=== PATIENT | female | born 1950 | race Caucasian/White ===

== ENCOUNTER 2019-01-24 07:15 | Day surgery (SDC) | payer MEDICARE ==
[~2019-01-24] VITALS: Ht 157.5 cm; Wt 77.5 kg
[~2019-01-24 07:15] MED LIST: ASPI325 PO; ASPI81EC PO; ATOR20 PO; ATOR40TA PO; ATORVASTATIN CA20 MG PO; BASAGLAR K100 UNIT/1 SC; CENTRUM SILVER1 EAC3 PO; CEPH500 PO; DICLOFENAC SOD100 G1 TOP; HYDCHL12.5 PO; HYDCHL25 PO; INSULANPEN; INSULANPEN SC; Isosorbide Mono30 MG PO; LOSA50 PO; MAGOXI400 PO; METO100 PO; METO25 PO; Metformin HCl1000 MG PO; NAPR220; NAPR220 PO; Nitroglycerin0.4 MG SL; OXYACE5T PO; Omeprazole20 M1; PRAV20 PO; SPIR25 PO; TAMS.4ER PO; TRULICITY0.75 MG/0. SC; VERA180ERB PO; VITAMIN D35000 UNI1 PO
[2019-01-24] MEDS ORDERED: Aspirin EC325 MG PO (07:48)
--- NOTE | 2019-01-24 08:08 | NUR ---
Ambulatory in Day Surgery History, Chart, Medications and Allergies reviewed before start of procedure. Lungs clear T/O to Auscultation. Patient confirms NPO status and agrees with scheduled surgery. Pre-Op teaching done. Pt verbalizes understanding. Patient States Post-Procedure ride home has been arranged.
--- NOTE | 2019-01-24 12:21 | NUR ---
ASSUMED CARE OF PT FROM [facility] PACU. PT IS A&O. BIOX IN THE MID 80'S ON RA. PT PLACED ON 2L NC AND BIOX REMAINS BETWEEN 88-91% WITH ENCOURAGEMENT OF DEEP BREATHING. PT TAKING SIPS OF APPLE/CRANBERRY JUICE. FAMILY TO BEDSIDE.
--- NOTE | 2019-01-24 12:24 | NUR ---
PT EATING CRACKERS. REPORTS PAINFUL TO TAKE A DEEP BREATH. ENCOURAGED PT TO EAT AND THEN WE WOULD TRY SOME PO PAIN MEDICATIONS. PT AGREEABLE.
--- NOTE | 2019-01-24 12:27 | NUR ---
ICE PACK PROVIDED.
--- NOTE | 2019-01-24 12:55 | NUR ---
PT AMB TO BATHROOM AND BACK. PT BIOX IN THE MID 80'S WHEN RETURN TO BEDSIDE. PT PLACED BACK ON O2 AT 2L NC. BIOX UP TO 89% ONLY. DOES NOT INCREASED WITH ENCOURAGED DEEP BREATHING AND COUGH.
--- NOTE | 2019-01-24 13:08 | NUR ---
DR. TORRES AND DR. SORTO SPOKE TO ABOUT PT CURRENT BIOX AND CONDITION. DOUNEB ORDER AND PT PT START INCENTIVE SPIROMENTER. IF PT CONDITION DOESN'T IMPROVED PLAN TO EXTENDED RECOVERY.
--- NOTE | 2019-01-24 13:17 | NUR ---
BREATHING TREATMENT COMPLETE. PT INSTRUCTED ON INCENTIVE SPIROMENTER. PT DEMONSTRATED. PT GIVEN WARM BLANKET AND RESTING. BIOX UP TO 93% WHILE PT IS AWAKE AND WHEN SHE IS AT REST BIOX AT 90% ON 2L. INCREASED TO 3L NC WILL CONTINUE TO MONTIOR PT. WAITING FOR HSUBAND TO RETURN FROM TAKING HER RX TO GET FILLED AT PHARMACY.
--- NOTE | 2019-01-24 13:53 | NUR ---
REPORT FROM ANTHONY IN DAY SURGERY.
--- NOTE | 2019-01-24 14:00 | NUR ---
REPORT TO JOHANNA Johnson RN TO ASSUME CARE OF PT. PT TRANSFERED TO ROOM 208
--- NOTE | 2019-01-24 14:00 | NUR ---
PT TO 208 VIA HARDIK. PT ALERT AND ORIENTED. PT POST OP UMBILICAL HERNIA REPAIR, HYPOXIC IN RECOVERY. HERE FOR CONTINUED MONITORING. SPOUSE AT BEDSIDE. 20G TO RIGHT HAND. SATS 96% ON 3L, DECREASED O2 TO 2L. PT DENIES NAUSEA, DENIES SOB, DENIES NEED FOR PAIN MEDS.
[2019-01-24] MEDS ORDERED: COQ10 PO (14:14)
--- NOTE | 2019-01-24 14:30 | NUR ---
VSS, DECREASED O2 TO 1L. SNACK PROVIDED TO PT. PT HAS NO COMPLAINTS.
--- NOTE | 2019-01-24 15:53 | NUR ---
PT SAT ON 1L 88%. PT DENIES SOB. INCREASED O2 TO 2L. PT STATES PAIN MANAGED. ATE 100% SNACK.
--- NOTE | 2019-01-24 16:23 | NUR ---
PT UP RR THEN TO AMB IN DUNN.
--- NOTE | 2019-01-24 16:27 | NUR ---
LEFT MESSAGE WITH DR BHATT ANSWERING SERVICE RE NEED FOR ADMIT ORDERS.
--- NOTE | 2019-01-24 16:40 | NUR ---
DR TORRES TO ROOM FOR EVAL. PLAN TO MONITOR A FEW HRS AND DC HOME TONIGHT. PT AMB WELL. DOING IS.
--- NOTE | 2019-01-24 16:55 | NUR ---
REPORT TO TED TARANGO.
--- NOTE | 2019-01-24 17:34 | NUR ---
PT O2 SAT 92% ON RA-PT REQUESTS TO GO HOME, MEETS DISCHARGE CRITERA.
== END 2019-01-24 18:30 | disposition home or self-care (01) ==
LOC: ORSCMMR 07:15 → ORD 09:00 → SURS 14:00 → ORSCMMR 18:30
PROVIDERS: Surgery
PROC: 0WUF0JZ Supplement Abdominal Wall with Synthetic Substitute, Open Approach (ICD-10-PCS; principal; 2019-01-24 09:00)
DX: K43.2 Incisional hernia without obstruction or gangrene (principal); I10 Essential (primary) hypertension; E11.9 Type 2 diabetes mellitus without complications; I25.2 Old myocardial infarction; I25.10 Atherosclerotic heart disease of native coronary artery without angina pectoris; Z87.891 Personal history of nicotine dependence; Z79.899 Other long term (current) drug therapy; Z79.82 Long term (current) use of aspirin
CPT/HCPCS: 82947; 88302; A9270-GY; C1781; J0690; J1100; J1885; J2370; J2405; J2704; J2710; J2765; J3010; J7120

== ENCOUNTER 2019-07-05 10:31 | Emergency (ER) | payer MEDICARE ==
[~2019-07-05] VITALS: Ht 157.5 cm; Wt 74.4 kg
[~2019-07-05 10:31] MED LIST changes: +Aspirin EC325 MG PO; +COQ10 PO
[2019-07-05 12:26] LABS: BASOPHILS ABSOLUTE AUTO 0.07 K/mm3 (0.00-0.23); BASOPHILS PERCENT AUTO 1 % (0-2); EOSINOPHILS ABSOLUTE AUTO 0.22 K/mm3 (0.00-0.68); EOSINOPHILS PERCENT AUTO 2 % (0-6); Hematocrit 43.7 % (33.0-51.0); Hemoglobin 14.2 g/dL (11.5-16.0); IMMATURE GRAN ABSOLUTE AUTO 0.05 K/mm3 (0.00-0.10); IMMATURE GRAN PERCENT AUTO 0 % (0-1); LYMPHOCYTES ABSOLUTE AUTO 2.83 K/mm3 (0.84-5.20); LYMPHOCYTES PERCENT AUTO 23 % (21-46); MONOCYTES ABSOLUTE AUTO 0.79 K/mm3 (0.16-1.47); MONOCYTES PERCENT AUTO 6 % (4-13); Mean Corpuscular HGB 30.7 pg (26.0-34.0); Mean Corpuscular HGB Conc 32.5 g/dL (31.5-36.5); Mean Corpuscular Volume 94 fL (80-100); Mean Platelet Volume 9.5 fL (9.1-12.4); NEUTROPHILS ABSOLUTE AUTO 8.39 K/mm3 (1.96-9.15); NEUTROPHILS PERCENT AUTO 68 % (41-73); Platelet Count 406 K/mm3 (150-400); RDW Coefficient Variation 12.5 % (11.7-14.2); RDW Standard Deviation 43.4 fL (35.1-46.3); Red Blood Cell Count 4.63 M/mm3 (3.80-5.20); White Blood Cell Count 12.35 K/mm3 (4.00-11.30)
[2019-07-05 12:37] LABS: Albumin, Blood 3.8 g/dL (3.4-5.0); Bilirubin, Total 0.3 mg/dL (0.1-1.0); Bun/Creatinine Ratio 13.8 (12.0-20.0); Calcium, Blood 9.5 mg/dL (8.5-10.1); Creatinine, Blood 1.16 mg/dL (0.40-1.00); Globulin, Blood 3.9 g/dL (2.2-4.0); Potassium, Blood 4.2 mmol/L (3.5-5.5); Total Protein, Blood 7.7 g/dL (6.4-8.2)
[2019-07-05 14:17] LABS: Source, Urine Clean Catch
[2019-07-05 14:20] LABS: Bilirubin, Urine Neg (Neg); Blood, Urine 5+ (Neg); Glucose Qualitative, Urine Neg (Neg); Ketones, Urine Neg (Neg); Leukocyte Esterase, Urine 2+ (Neg); Nitrite, Urine Neg (Neg); Protein, Urine 1+ (Neg); Urobilinogen, Urine NORM (Normal)
[2019-07-05 14:25] LABS: Appearance, Urine Hazy (Clear); Color, Urine Yellow (P-Yellow)
[2019-07-05 14:26] LABS: Bacteria Mod /hpf; Calcium Oxalate Crystals Mod /hpf; Mucus Light (0-Heavy); Squamous Epithelial Cells Few /hpf (Few)
[2019-07-05] MEDS ORDERED: Percocet 5-3251 EACH PO (15:09)
[2019-07-05] MEDS ORDERED: IBUP400 PO (15:09)
[2019-07-05] MEDS ORDERED: ONDA4ODT SL (15:09)
== END 2019-07-05 15:23 | disposition home or self-care (01) ==
LOC: ER 10:31
PROVIDERS: Emergency Medicine
DX: R82.71 Bacteriuria (principal); D72.829 Elevated white blood cell count, unspecified; E11.9 Type 2 diabetes mellitus without complications; I25.2 Old myocardial infarction; Z87.442 Personal history of urinary calculi; Z87.891 Personal history of nicotine dependence; Z79.899 Other long term (current) drug therapy; Z79.4 Long term (current) use of insulin; Z79.82 Long term (current) use of aspirin
CPT/HCPCS: 36415; 76770; 80053; 81001; 85025; 87086; 96374; 99284-25; J1885

== ENCOUNTER → 2021-05-24 | Outpatient (CLI) | payer MEDICARE ==
[~2021-05-24] MED LIST changes: +IBUP400 PO; +ONDA4ODT SL; +Percocet 5-3251 EACH PO
== END ==
LOC: LAB SHORT 10:33 → LAB 10:33
DX: L02.511 Cutaneous abscess of right hand (principal)
CPT/HCPCS: 87070; 87075; 87205

== ENCOUNTER → 2021-10-25 | Outpatient (CLI) | payer MEDICARE | END | disposition home or self-care (01) | LOC: LAB SHORT 11:33 → LAB 11:33 | DX: N20.0 Calculus of kidney (principal) | CPT/HCPCS: 87086 ==

== ENCOUNTER → 2022-01-03 | Outpatient (CLI) | payer MEDICARE ==
[2022-01-13 21:10] LABS: BRUSHITE 0.15 ratio (0.00-3.00); CALCIUM OXALATE 4.37 ratio (0.00-6.00); CALCIUM, URINE 10.1 mg/dL (Not Estab.); CALCIUM, URINE 181.8 mg/24 hr (0.0-320.0); CHLORIDE URINE 47 (38-210); CITRIC ACID (CITRATE) 258 mg/L (Not Estab.); CITRIC ACID(CITRATE) 464 mg/24 hr (320-1240); CREATININE, URINE 38.2 mg/dL (Not Estab.); CREATININE, URINE 687.6 mg/24 hr (800.0-1800.0); MAGNESIUM, URINE 1.8 mg/dL (Not Estab.); MONOSODIUM URATE 0.28 ratio (0.00-4.00); OSMOLALITY, URINE 184 (300-900); SODIUM, URINE 27 mmol/L (Not Estab.); SODIUM, URINE 49 (39-258); STRUVITE 0.01 ratio (0.00-1.00); URIC ACID 1.57 ratio (0.00-1.20); URINE VOLUME 1800 mL/24 hr (600-1600); URINE VOLUME (PRESERVATIVE) 1800 mL/24 hr (600-1600)
== END | disposition home or self-care (01) ==
LOC: LAB SHORT 05:00
PROVIDERS: Urology
DX: N20.0 Calculus of kidney (principal)
CPT/HCPCS: 81003; 82131; 82140; 82340; 82436; 82507; 82570; 83735; 83935; 83945; 84105; 84133; 84300; 84392; 84560

== ENCOUNTER → 2023-06-10 | Outpatient (CLI) | payer MEDICARE ==
[2023-06-10 09:42] LABS: Source, Urine Clean Catch
[2023-06-10 09:59] LABS: Bacteria Few /hpf; Red Blood Cells, Urine 25-50 /hpf (0-2); Renal Epithelial Rare /hpf (0-Rare); Squamous Epithelial Cells Mod /hpf (Few)
== END | disposition home or self-care (01) ==
LOC: LAB SHORT 09:40 → LAB 09:40
PROVIDERS: Physician Assistant Medical
DX: R30.0 Dysuria (principal)
CPT/HCPCS: 81015; 87077; 87086; 87186

== ENCOUNTER → 2023-08-08 | Outpatient (CLI) | payer MEDICARE ==
[2023-08-08 09:26] LABS: BASOPHILS ABSOLUTE AUTO 0.05 K/mm3 (0.00-0.23); BASOPHILS PERCENT AUTO 0 % (0-2); EOSINOPHILS ABSOLUTE AUTO 0.03 K/mm3 (0.00-0.68); EOSINOPHILS PERCENT AUTO 0 % (0-6); Hemoglobin 13.4 g/dL (11.5-16.0); IMMATURE GRAN ABSOLUTE AUTO 0.05 K/mm3 (0.00-0.10); IMMATURE GRAN PERCENT AUTO 0 % (0-1); LYMPHOCYTES ABSOLUTE AUTO 1.18 K/mm3 (0.84-5.20); LYMPHOCYTES PERCENT AUTO 10 % (21-46); MONOCYTES ABSOLUTE AUTO 0.41 K/mm3 (0.16-1.47); MONOCYTES PERCENT AUTO 3 % (4-13); Mean Corpuscular HGB 31.8 pg (26.0-34.0); Mean Corpuscular HGB Conc 33.5 g/dL (31.5-36.5); Mean Corpuscular Volume 95 fL (80-100); Mean Platelet Volume 8.9 fL (9.1-12.4); NEUTROPHILS ABSOLUTE AUTO 10.57 K/mm3 (1.96-9.15); NEUTROPHILS PERCENT AUTO 86 % (41-73); Platelet Count 308 K/mm3 (150-400); RDW Coefficient Variation 12.5 % (11.7-14.2); RDW Standard Deviation 43.7 fL (35.1-46.3); Red Blood Cell Count 4.22 M/mm3 (3.80-5.20); White Blood Cell Count 12.29 K/mm3 (4.00-11.30)
[2023-08-08 09:35] LABS: Albumin, Blood 3.5 g/dL (3.4-5.0); Albumin/Globulin Ratio 1.1 (0.8-1.8); Bilirubin, Total 0.4 mg/dL (0.1-1.0); Bun/Creatinine Ratio 14.3 (12.0-20.0); Calcium, Blood 9.3 mg/dL (8.5-10.1); Creatinine, Blood 1.19 mg/dL (0.40-1.00); Globulin, Blood 3.1 g/dL (2.2-4.0); Potassium, Blood 4.4 mmol/L (3.5-5.5); Total Protein, Blood 6.6 g/dL (6.4-8.2)
== END | disposition home or self-care (01) ==
LOC: LAB SHORT 09:18 → LAB 09:18
PROVIDERS: Chiropractor
DX: D72.829 Elevated white blood cell count, unspecified (principal); R10.9 Unspecified abdominal pain
CPT/HCPCS: 80053; 85025; 87077; 87086; 87186

== ENCOUNTER → 2024-01-03 | Outpatient (CLI) | payer MEDICARE ==
[2024-01-03 12:51] LABS: Creatinine Urine 54.2 mg/dL (27.00-270.00)
[2024-01-03 13:18] LABS: Calcium, Urine 14.2 mg/dL (< 17.5); Calcium, Urine Calculation 255.6 mg/24hrs (42.0-353.0)
== END | disposition home or self-care (01) ==
LOC: LAB SHORT 07:30 → LAB 07:30
PROVIDERS: Internal Medicine Endocrinology, Diabetes & Metabolism
DX: Z09 Encounter for follow-up examination after completed treatment for conditions other than malignant neoplasm (principal); Z87.442 Personal history of urinary calculi
CPT/HCPCS: 81050; 82340; 82570

== ENCOUNTER → 2024-04-03 | Outpatient (CLI) | payer MEDICARE | END | disposition home or self-care (01) | LOC: LAB 17:44 → LAB SHORT 17:44 | DX: L03.116 Cellulitis of left lower limb (principal) | CPT/HCPCS: 87070; 87075; 87205 ==

== ENCOUNTER 2024-04-13 15:41 | Inpatient (IN) | payer MEDICARE ==
[~2024-04-13] VITALS: Ht 157.5 cm; Wt 73.9 kg
[~2024-04-13 15:41] MED LIST changes: -Aspir 8181 MG PO; -CALCIUM CIT 311 EAC7 PO; -CO Q10100 MG PO; -METF500C PO; -METO100ER PO; -OXYB5ER PO; -Prednisone10 MG PO; -TRULICITY4.5 MG/0.5 SC
[2024-04-13] MEDS ORDERED: CALCIUM CIT 311 EAC7 PO (15:56)
[2024-04-13] MEDS ORDERED: ATOR20 PO (15:56)
[2024-04-13] MEDS ORDERED: METF500C PO (15:57)
[2024-04-13] MEDS ORDERED: METO100ER PO (15:57)
[2024-04-13] MEDS ORDERED: Aspir 8181 MG PO (15:57)
[2024-04-13] MEDS ORDERED: OXYB5ER PO (15:58)
[2024-04-13] MEDS ORDERED: TRULICITY4.5 MG/0.5 SC (15:58)
[2024-04-13] MEDS ORDERED: Lactated Ringer's 1,000 ML IV ONE ×2 (16:20→16:21)
[2024-04-13 16:31] LABS: BASOPHILS ABSOLUTE AUTO 0.01 K/mm3 (0.00-0.23); BASOPHILS PERCENT AUTO 0 % (0-2); EOSINOPHILS ABSOLUTE AUTO 0.02 K/mm3 (0.00-0.68); EOSINOPHILS PERCENT AUTO 0 % (0-6); Hematocrit 38.7 % (33.0-51.0); Hemoglobin 13.1 g/dL (11.5-16.0); IMMATURE GRAN ABSOLUTE AUTO 0.03 K/mm3 (0.00-0.10); IMMATURE GRAN PERCENT AUTO 1 % (0-1); LYMPHOCYTES ABSOLUTE AUTO 1.53 K/mm3 (0.84-5.20); LYMPHOCYTES PERCENT AUTO 24 % (21-46); MONOCYTES ABSOLUTE AUTO 0.45 K/mm3 (0.16-1.47); MONOCYTES PERCENT AUTO 7 % (4-13); Mean Corpuscular HGB 31.2 pg (26.0-34.0); Mean Corpuscular HGB Conc 33.9 g/dL (31.5-36.5); Mean Corpuscular Volume 92 fL (80-100); Mean Platelet Volume 9.6 fL (9.1-12.4); NEUTROPHILS ABSOLUTE AUTO 4.46 K/mm3 (1.96-9.15); NEUTROPHILS PERCENT AUTO 69 % (41-73); Platelet Count 211 K/mm3 (150-400); RDW Standard Deviation 43.6 fL (35.1-46.3)
[2024-04-13 16:49] LABS: Albumin, Blood 3.1 g/dL (3.4-5.0); Albumin/Globulin Ratio 0.8 (0.8-1.8); Bilirubin, Total 0.4 mg/dL (0.1-1.0); Bun/Creatinine Ratio 16.3 (12.0-20.0); Calcium, Blood 8.5 mg/dL (8.5-10.1); Creatinine, Blood 0.98 mg/dL (0.40-1.00); Globulin, Blood 3.9 g/dL (2.2-4.0); Potassium, Blood 3.5 mmol/L (3.5-5.5)
[2024-04-13] MEDS ORDERED: Ondansetron HCl 2 MG / ML 2ML Vial IV PRN (18:50)
[2024-04-13] MEDS ORDERED: Remdesivir (EUA) 200 MG in NS 250 ML IV ONE (18:50)
[2024-04-13] MEDS ORDERED: Acetaminophen 500 MG Tab PO PRN (18:50)
[2024-04-13] MEDS ORDERED: NS 1,000 ML IV SCH (19:00)
[2024-04-13] MEDS ORDERED: Dexamethasone 2 MG Tab PO SCH (19:00)
[2024-04-13] MEDS ORDERED: Metoprolol Tartrate 25 MG Tab PO SCH (19:00)
[2024-04-13] MEDS ORDERED: Insulin Glargine-Yfgn 100 Unit/mL 3 ML SYR SC SCH (21:00)
[2024-04-13] MEDS ORDERED: Insulin Human Lispro 100 Units/ML 3ML Syringe SC SCH (21:00)
[2024-04-13 21:05] VITALS: BP 130/57
--- NOTE | 2024-04-13 23:38 | NUR ---
PATIENT IS A NEW ADMIT FROM THE ED. AXOX 4 AND SELF TRANSFER FROM [facility] TO BED. DENIES CHEST PAIN AND N/V. ON 6L O2 NC HUMIDIFIED AND RA BASELINE. CBG CHECKED 202. NS STARTED @ 75 mL/HR. QUATER SIZE SCAB TO LEFT CALF FROM STACKING WOOD IN PICKUP A FEW WEEKS AGO. ORIENTED TO ROOM AND CALL LIGHT SYSTEM. WANTED TO SLEEP AFTER ASSESSMENT. WCTM.
--- NOTE | 2024-04-14 04:22 | NUR ---
SHIFT SUMMARY PATIENT HAD NO ACUTE CHANGES. AXOX 4 AND INDEPENDENT IN ROOM. DENIES CHEST PAIN AND N/V. ON 6L O2 NC HUMIDIFIED. NS INFUSING @ 75 mL/HR. CBG 202. VSS/AFEBRILE. COOPERATIVE WITH CARE. REPORTS LIVES IN GLIDE WITH SPOUSE. CALL LIGHT IN REACH. BED IN LOWEST POSITION. WILL CONTINUE TO MONITOR UNTIL DAY SHIFT NURSE ASSUMES CARE.
[2024-04-14 05:06] VITALS: BP 107/57
[2024-04-14 05:17] LABS: BASOPHILS PERCENT AUTO 0 % (0-2); EOSINOPHILS PERCENT AUTO 0 % (0-6); Hematocrit 35.2 % (33.0-51.0); Hemoglobin 11.9 g/dL (11.5-16.0); IMMATURE GRAN ABSOLUTE AUTO 0.01 K/mm3 (0.00-0.10); IMMATURE GRAN PERCENT AUTO 0 % (0-1); LYMPHOCYTES ABSOLUTE AUTO 0.87 K/mm3 (0.84-5.20); LYMPHOCYTES PERCENT AUTO 26 % (21-46); MONOCYTES ABSOLUTE AUTO 0.09 K/mm3 (0.16-1.47); MONOCYTES PERCENT AUTO 3 % (4-13); Mean Corpuscular HGB 31.2 pg (26.0-34.0); Mean Corpuscular HGB Conc 33.8 g/dL (31.5-36.5); Mean Corpuscular Volume 92 fL (80-100); Mean Platelet Volume 9.9 fL (9.1-12.4); NEUTROPHILS ABSOLUTE AUTO 2.43 K/mm3 (1.96-9.15); NEUTROPHILS PERCENT AUTO 72 % (41-73); Platelet Count 200 K/mm3 (150-400); RDW Coefficient Variation 12.7 % (11.7-14.2); RDW Standard Deviation 42.7 fL (35.1-46.3); Red Blood Cell Count 3.82 M/mm3 (3.80-5.20)
[2024-04-14 05:48] LABS: Calcium, Blood 7.9 mg/dL (8.5-10.1); Creatinine, Blood 0.8 mg/dL (0.40-1.00); Magnesium, Blood 2.2 mg/dL (1.6-2.4); Potassium, Blood 4.1 mmol/L (3.5-5.5)
[2024-04-14 07:26] VITALS: BP 123/66
[2024-04-14] MEDS ORDERED: Atorvastatin 10 MG Tab PO SCH (09:00)
[2024-04-14] MEDS ORDERED: Enoxaparin 40 MG/0.4 ML SYR SC SCH (09:00)
[2024-04-14] MEDS ORDERED: Aspirin 81 MG TabEC PO SCH (09:00)
[2024-04-14] MEDS ORDERED: Isosorbide Mononitrate 30 MG TABCR PO SCH (11:45)
[2024-04-14] MEDS ORDERED: Remdesivir (EUA) 100 MG in NS 250 ML IV SCH (12:00)
--- NOTE | 2024-04-14 13:23 | NUR ---
PER PT LIST FROM HOME, AND MED REC. MISSING MEDS REQUESTED TO BE ADDED.' CALLED DR HARTMAN. OKAY ADD LOSSARTAN 25 MG PO DAILY, METFORMIN ER 500 MG PO DAILY, OXYBUTYNIN ER 10 MG PO DAILY BEDTIME. KEEP METOPROLOL AT LOWER DOSE NO CHANGE. DONE
[2024-04-14 15:41] VITALS: BP 111/61
[2024-04-14] MEDS ORDERED: Insulin Human Lispro 100 Units/ML 3ML Syringe SC SCH (16:30)
--- NOTE | 2024-04-14 18:00 | NUR ---
PT QUITE PLEASANT TODAY. NO C.O PAIN TODAY. O2 STARTED AT 7L THIS AM. GRADUALLY ABLE TO TAPER DOWN TO 2L AT THIS PRESENT TIME. SATTING >92% -94% ON BIOX MONITOR. PT AWARE AND AGREEABLE TO CALL IF CONT BIOX NOTIFIES OF LOW O2. PT STATES FEELS SOME IMPROVEMENT TODAY AND FEELS MIGHT BE OKAY TO GO HOME TOMORROW. NO OTHER CONCERNS NOTED. BED IN LOW POSITION, CALL LITE IN REACH, CALLS APROP
[2024-04-14 19:31] VITALS: BP 99/44
[2024-04-14] MEDS ORDERED: oxyBUTYnin chloride 5 MG TAB PO SCH (21:00)
[2024-04-15 04:01] VITALS: BP 101/53
--- NOTE | 2024-04-15 04:11 | NUR ---
SHIFT SUMMARY PATIENT HAD NO ACUTE CHANGES. AXOX 4 AND INDEPENDENT IN ROOM. ON 2L O2 NC STATING 88%-92%. COVID-19+. VSS/AFEBRILE. DENIES CHEST PAIN AND N/V. PIV INTACT. COOPERATIVE WITH CARE. CALL LIGHT IN REACH. BED IN LOWEST POSITION. WILL CONTINUE TO MONITOR UNTIL DAY SHIFT NURSE ASSUMES CARE.
[2024-04-15 07:45] VITALS: BP 103/52
[2024-04-15] MEDS ORDERED: Losartan Potassium 25 MG Tab PO SCH (09:00)
[2024-04-15] MEDS ORDERED: MetFORMIN HCl 500 mg PO SCH (09:00)
[2024-04-15] MEDS ORDERED: CO Q10100 MG PO (12:50)
[2024-04-15] MEDS ORDERED: Prednisone10 MG PO (12:54)
--- NOTE | 2024-04-15 16:02 | NUR ---
DISCHARGE: PT D/C @1605 VIA WHEELCHAIR WITH BROTHER. MEDICATIONS FAXED TO [facility] TW[facility] PT DID NOT RECEIVE TEXT THAT MEDS WERE READY AND COULD NOT GET A HOLD OF PHARMACY. NO QUESTIONS AT TIME OF D/C. PT HAS FOLLOW-UP APPOINTMENT WITH DR. SANDOVAL. INFORMATION SENT WITH PT.
== END 2024-04-15 16:04 | disposition home or self-care (01) | DRG 177 ==
LOC: ER 15:41 → ERHOLD 18:13 → MEDS 18:13
PROVIDERS: Emergency Medicine; Nurse Practitioner Acute Care; ADMIT Hospitalist
PROC: XW033E5 Introduction of Remdesivir Anti-infective into Peripheral Vein, Percutaneous Approach, New Technology Group 5 (ICD-10-PCS; principal; 2024-04-13)
PROC: 3E0DX3Z Introduction of Anti-inflammatory into Mouth and Pharynx, External Approach (ICD-10-PCS; 2024-04-13)
DX: U07.1 COVID-19 (principal); J96.01 Acute respiratory failure with hypoxia; I25.10 Atherosclerotic heart disease of native coronary artery without angina pectoris; E78.5 Hyperlipidemia, unspecified; E11.51 Type 2 diabetes mellitus with diabetic peripheral angiopathy without gangrene; E11.65 Type 2 diabetes mellitus with hyperglycemia; Z79.4 Long term (current) use of insulin
CPT/HCPCS: 36415; 80048; 80053; 82947; 83735; 85025; 94761; 94762; 96361; 96365; 99285-25; A9270; J0248; J1650; J1815; J7030; J7050; J7120

== ENCOUNTER → 2024-04-13 | Outpatient (CLI) | payer MEDICARE ==
[~2024-04-13] MED LIST changes: +Aspir 8181 MG PO; +CALCIUM CIT 311 EAC7 PO; +CO Q10100 MG PO; +METF500C PO; +METO100ER PO; +OXYB5ER PO; +Prednisone10 MG PO; +TRULICITY4.5 MG/0.5 SC
== END | disposition home or self-care (01) ==
LOC: LAB SHORT 15:40 → LAB 15:40
DX: R30.9 Painful micturition, unspecified (principal); Z87.440 Personal history of urinary (tract) infections
CPT/HCPCS: 87086

== ENCOUNTER → 2024-11-21 | Outpatient (CLI) | payer MEDICARE ==
[~2024-11-21] MED LIST changes: +Aspir 8181 MG PO; +CALCIUM CIT 311 EAC7 PO; +CO Q10100 MG PO; +METF500C PO; +METO100ER PO; +OXYB5ER PO; +Prednisone10 MG PO; +TRULICITY4.5 MG/0.5 SC
== END | disposition home or self-care (01) ==
LOC: LAB 10:25 → LAB SHORT 10:25
DX: N39.0 Urinary tract infection, site not specified (principal)
CPT/HCPCS: 87077; 87086; 87186

== ENCOUNTER → 2025-04-04 | Outpatient (CLI) | payer MEDICARE ==
[2025-04-04 12:39] LABS: Hematocrit 33.1 % (33.0-51.0); Hemoglobin 11.2 g/dL (11.5-16.0); Mean Corpuscular HGB Conc 33.8 g/dL (31.5-36.5); Mean Corpuscular Volume 98 fL (80-100); NRBC ABSOLUTE 0.00 K/mm3 (0.00-0.02); NRBC Auto 0.0 /100 WBC (0.0-0.2); Platelet Count 234 K/mm3 (150-400); RDW Coefficient Variation 15.2 % (11.7-14.2); RDW Standard Deviation 53.3 fL (35.1-46.3)
[2025-04-04 12:49] LABS: Alanine Aminotransfer (ALT/SGP 24.0 U/L (12-78); Albumin, Blood 3.1 g/dL (3.4-5.0); Albumin/Globulin Ratio 0.8 (0.8-1.8); Anion Gap 14.0 mmol/L (3-11); Aspartate Aminotrans (AST/SGOT 17.0 U/L (12-37); Bilirubin, Total 0.4 mg/dL (0.1-1.0); Blood Urea Nitrogen 29.0 mg/dL (8-24); CO2, Blood 24.0 mmol/L (21-32); Calcium, Blood 9.0 mg/dL (8.5-10.1); Chloride, Blood 104.0 mmol/L (98-108); Creatinine, Blood 1.45 mg/dL (0.40-1.00); Globulin, Blood 4.1 g/dL (2.2-4.0); Glucose, Blood 156.0 mg/dL (70-99); Potassium, Blood 3.6 mmol/L (3.5-5.5); Sodium, Blood 138.0 mmol/L (136-145); Total Protein, Blood 7.2 g/dL (6.4-8.2)
[2025-04-04 12:58] LABS: BAND PERCENT MAN 6 % (0-8); BASOPHILS ABSOLUTE MAN 0.09 K/mm3 (0.00-0.23); BASOPHILS PERCENT MAN 1 % (0-2); EOSINOPHILS ABSOLUTE MAN 0.18 K/mm3 (0.00-0.68); EOSINOPHILS PERCENT MAN 2 % (0-6); LYMPHOCYTES ABSOLUTE MAN 2.99 K/mm3 (0.84-5.20); LYMPHOCYTES PERCENT MAN 32 % (21-46); MONOCYTES ABSOLUTE MAN 3.55 K/mm3 (0.16-1.47); MONOCYTES PERCENT MAN 38 % (4-13); NEUTROPHILS ABSOLUTE MAN 2.52 K/mm3 (1.96-9.15); SEG NEUTROPHILS PERCENT MAN 21 % (41-73)
== END | disposition home or self-care (01) ==
LOC: LAB SHORT 12:31 → LAB 12:31
PROVIDERS: Physician Assistant
DX: R07.9 Chest pain, unspecified (principal); R06.00 Dyspnea, unspecified
CPT/HCPCS: 80053; 84484; 85025; 85379

== ENCOUNTER 2025-05-22 18:50 | Inpatient (IN) | payer MEDICARE ==
[~2025-05-22] VITALS: Ht 157.5 cm; Wt 84.1 kg
[~2025-05-22 18:50] MED LIST changes: -PANT40 PO
[2025-05-22] MEDS ORDERED: NS 1,000 ML IV SCH (19:00)
[2025-05-22] MEDS ORDERED: CefTRIAXone Sodium 2,000 MG in NS 100 ML IV ONE (19:00)
[2025-05-22 19:04] LABS: Mean Corpuscular HGB Conc 33.1 g/dL (31.5-36.5); Mean Corpuscular Volume 104 fL (80-100); NRBC ABSOLUTE 0.06 K/mm3 (0.00-0.02); NRBC Auto 0.2 /100 WBC (0.0-0.2); Platelet Count 248 K/mm3 (150-400); RDW Coefficient Variation 17.3 % (11.7-14.2); RDW Standard Deviation 62.4 fL (35.1-46.3)
[2025-05-22] MEDS ORDERED: Pantoprazole Sodium 40 MG Injection IV ONE (19:05)
[2025-05-22 19:10] LABS: Hematocrit 16.6 % (33.0-51.0); Hemoglobin 5.5 g/dL (11.5-16.0)
[2025-05-22 19:18] LABS: Alanine Aminotransfer (ALT/SGP 15.0 U/L (12-78); Albumin, Blood 2.7 g/dL (3.4-5.0); Albumin/Globulin Ratio 0.9 (0.8-1.8); Anion Gap 8.0 mmol/L (3-11); Aspartate Aminotrans (AST/SGOT 13.0 U/L (12-37); Bilirubin, Direct 0.1 mg/dL (0.0-0.3); Bilirubin, Indirect 0.4 mg/dL (0.1-0.7); Bilirubin, Total 0.5 mg/dL (0.1-1.0); Blood Urea Nitrogen 12.0 mg/dL (8-24); CO2, Blood 23.0 mmol/L (21-32); Calcium, Blood 7.8 mg/dL (8.5-10.1); Chloride, Blood 113.0 mmol/L (98-108); Creatinine, Blood 1.41 mg/dL (0.40-1.00); Globulin, Blood 3.0 g/dL (2.2-4.0); Glucose, Blood 74.0 mg/dL (70-99); Magnesium, Blood 2.3 mg/dL (1.6-2.4); Phosphorus, Blood 5.8 mg/dL (2.5-4.9); Potassium, Blood 3.2 mmol/L (3.5-5.5); Prothrombin Time Results 12.4 Sec (9.7-11.5); Sodium, Blood 141.0 mmol/L (136-145); Total Protein, Blood 5.7 g/dL (6.4-8.2)
[2025-05-22 19:49] LABS: BASOPHILS ABSOLUTE MAN 0.00 K/mm3 (0.00-0.23); BASOPHILS PERCENT MAN 0 % (0-2); EOSINOPHILS ABSOLUTE MAN 0.24 K/mm3 (0.00-0.68); EOSINOPHILS PERCENT MAN 1 % (0-6); LYMPHOCYTES % ATYPICAL MANUAL 1 % (0-0); LYMPHOCYTES ABSOLUTE MAN 11.07 K/mm3 (0.84-5.20); LYMPHOCYTES PERCENT MAN 44 % (21-46); MONOCYTES ABSOLUTE MAN 11.07 K/mm3 (0.16-1.47); MONOCYTES PERCENT MAN 45 % (4-13); NEUTROPHILS ABSOLUTE MAN 1.72 K/mm3 (1.96-9.15); SEG NEUTROPHILS PERCENT MAN 7 % (41-73)
[2025-05-22 19:54] LABS: BLASTS PERCENT MAN 2 % (0-0)
[2025-05-22 20:15] LABS: Source, Urine Clean Catch
[2025-05-22 20:19] LABS: Bilirubin, Urine Neg (Neg); Glucose Qualitative, Urine Neg (Neg); Ketones, Urine Neg (Neg); Leukocyte Esterase, Urine Neg (Neg); Protein, Urine 1+ (Neg); Specific Gravity, Urine 1.005 (1.003-1.022); Urobilinogen, Urine NORM (Normal)
[2025-05-22 20:32] LABS: Color, Urine Pale Yellow (P-Yellow)
[2025-05-22] MEDS ORDERED: NS 1,000 ML IV ONE (21:25)
[2025-05-22] MEDS ORDERED: Ondansetron HCl 2 MG / ML 2ML Vial IV PRN (23:25)
[2025-05-22 23:44] LABS: C-REACTIVE PROTEIN, EXT RANGE 3.62 mg/dL (0.000-0.300)
[2025-05-22 23:48] LABS: Ferritin, Serum 751.0 ng/mL (8-252); Total Iron Binding Capacity 196.0 ug/dL (250-450)
[2025-05-23] VITALS (9 sets, daily range): BP systolic 110–133; BP diastolic 53–84
[2025-05-23] MEDS ORDERED: NS 1,000 ML IV SCH
[2025-05-23 00:01] LABS: CORONAVIRUS COVID-19 AG Negative (NEGATIVE)
[2025-05-23 00:08] LABS: IMMATURE RETIC FRACTION 33.7 % (2.3-16.0); RETIC HGB EQUIVALENT 40.0 pg (28.20-36.60); RETICULOCYTE ABSOLUTE 0.0238 M/mm3 (0.0200-0.1100); RETICULOCYTE COUNT PERCENT 1.49 % (0.50-2.50)
--- NOTE | 2025-05-23 03:41 | NUR ---
ADMIT NOTE PT ARRIVED TO PCU FROM ED VIA ED STRETCHER AT APPROX 0215. PT WAS SLID BY 4 STAFF FROM ED STRETCHER TO PCU BED. PT A&OX4. SP02>90%ON RA. TELEMETRY SHOWS NSR, HR 80'S. DENIES PAIN. PURWIK TO SUCTION. LAST BM YESTERDAY. C/O OF NO APPETITE FOR A WEEK. C/O OF DRY MOUTH, SIDE EFFECT OF UROLOGY MEDICATION. POTASSIUM INFUSING PER EMAR. 2UNITS PRBC GIVEN IN ER. PT ORIENTED TO ROOM, CALL LIGHT. CALL LIGHT IN REACH.
[2025-05-23 04:08] LABS: Hematocrit 28.0 % (33.0-51.0); Hemoglobin 9.4 g/dL (11.5-16.0); Mean Corpuscular HGB Conc 33.6 g/dL (31.5-36.5); NRBC ABSOLUTE 0.05 K/mm3 (0.00-0.02); NRBC Auto 0.2 /100 WBC (0.0-0.2); Platelet Count 263 K/mm3 (150-400); RDW Coefficient Variation 18.5 % (11.7-14.2); RDW Standard Deviation 60.6 fL (35.1-46.3)
[2025-05-23 04:09] LABS: Mean Corpuscular Volume 98 fL (80-100)
[2025-05-23 04:28] LABS: Prothrombin Time Results 12.3 Sec (9.7-11.5)
[2025-05-23 04:36] LABS: Alanine Aminotransfer (ALT/SGP 23.0 U/L (12-78); Albumin, Blood 2.8 g/dL (3.4-5.0); Albumin/Globulin Ratio 0.8 (0.8-1.8); Anion Gap 9.0 mmol/L (3-11); Aspartate Aminotrans (AST/SGOT 22.0 U/L (12-37); Bilirubin, Total 0.8 mg/dL (0.1-1.0); Blood Urea Nitrogen 11.0 mg/dL (8-24); CO2, Blood 23.0 mmol/L (21-32); Calcium, Blood 7.7 mg/dL (8.5-10.1); Chloride, Blood 116.0 mmol/L (98-108); Creatinine, Blood 1.27 mg/dL (0.40-1.00); Globulin, Blood 3.6 g/dL (2.2-4.0); Glucose, Blood 78.0 mg/dL (70-99); Magnesium, Blood 2.3 mg/dL (1.6-2.4); Potassium, Blood 3.6 mmol/L (3.5-5.5); Sodium, Blood 144.0 mmol/L (136-145); Total Protein, Blood 6.4 g/dL (6.4-8.2)
--- NOTE | 2025-05-23 05:21 | NUR ---
SHIFT SUMMARY NO CHANGES SINCE PREVIOUS NOTE. PT RESTING IN BED, CALL LIGHT IN REACH.
--- NOTE | 2025-05-23 06:04 | NUR ---
UPDATE UPDATED PT'S SON, WHO CALLED FOR UPDATE. SON TO VISIT THIS AM.
[2025-05-23 06:50] LABS: BASOPHILS ABSOLUTE MAN 0.00 K/mm3 (0.00-0.23); BASOPHILS PERCENT MAN 0 % (0-2); EOSINOPHILS ABSOLUTE MAN 0.00 K/mm3 (0.00-0.68); EOSINOPHILS PERCENT MAN 0 % (0-6); LYMPHOCYTES ABSOLUTE MAN 6.36 K/mm3 (0.84-5.20); LYMPHOCYTES PERCENT MAN 29 % (21-46); MONOCYTES ABSOLUTE MAN 13.61 K/mm3 (0.16-1.47); MONOCYTES PERCENT MAN 62 % (4-13); NEUTROPHILS ABSOLUTE MAN 1.09 K/mm3 (1.96-9.15); SEG NEUTROPHILS PERCENT MAN 5 % (41-73)
[2025-05-23 06:51] LABS: BLASTS PERCENT MAN 4 % (0-0)
[2025-05-23] MEDS ORDERED: CefTRIAXone Sodium 2,000 MG in NS 100 ML IV SCH (09:00)
[2025-05-23] MEDS ORDERED: Enoxaparin 40 MG/0.4 ML SYR SC SCH (09:00)
[2025-05-23] MEDS ORDERED: Lactobacil 2-S.Thermo-Bifido 1 1 Cap PO SCH (09:00)
[2025-05-23 11:25] LABS: Hematocrit 27.0 % (33.0-51.0); Hemoglobin 9.1 g/dL (11.5-16.0); Mean Corpuscular HGB Conc 33.7 g/dL (31.5-36.5); Mean Corpuscular Volume 99 fL (80-100); NRBC ABSOLUTE 0.05 K/mm3 (0.00-0.02); NRBC Auto 0.2 /100 WBC (0.0-0.2); Platelet Count 240 K/mm3 (150-400); RDW Coefficient Variation 19.8 % (11.7-14.2); RDW Standard Deviation 65.0 fL (35.1-46.3)
[2025-05-23] MEDS ORDERED: PANT40 PO (13:07)
[2025-05-23 15:12] LABS: Hematocrit 24.6 % (33.0-51.0); Hemoglobin 8.3 g/dL (11.5-16.0)
[2025-05-23] MEDS ORDERED: Insulin Regular 100 UNIT/ML 10ML Vial SC SCH (16:30)
--- NOTE | 2025-05-23 17:56 | NUR ---
1744-CALL TO MD AGUIAR PATIENT C/O CHEST PAIN AND SOB, STATED THE PAIN WAS SHARP AND WORSE WITH INSPIRATION. PATIENT DENIED CHEST PRESSURE. RESP 22 HR 109BPM AT TIME OF COMPLAINT. PLACED CALL TO MD AGUIAR, GAVE VERBAL FOR THIS RN TO PLACE EKG ORDER, AND STATED SHE WOULD PLACE CT-PE AND TROPONIN ORDERS. STATED SHELL BE BY TO READ EKG.
--- NOTE | 2025-05-23 18:34 | NUR ---
SHIFT SUMMARY PATIENT IS A&O X4, BEEN SLEEPING THROUGH MOST OF DAY. USING A PUREWICK. NURSE STAND BY FOR TRANSFERS, SHE IS WEAK. DEVELOPED SHARP CHEST PAIN WITH SOB DURING SHIFT. AWAITING CT-PE AND RESULTS OF TROPONIN. ECG WAS DONE, SHOWING SINUS TACHYCARDIA. MD SURGEON GAVE VERBAL PT TO STAY ON CLEAR LIQUID DIET WITH CRACKERS UPON REQUEST.
[2025-05-23 22:03] LABS: Hematocrit 23.8 % (33.0-51.0); Hemoglobin 8.1 g/dL (11.5-16.0)
[2025-05-24] VITALS (20 sets, daily range): BP systolic 94–135; BP diastolic 41–82
[2025-05-24 04:19] LABS: Hematocrit 23.5 % (33.0-51.0); Hemoglobin 7.9 g/dL (11.5-16.0); Mean Corpuscular HGB Conc 33.6 g/dL (31.5-36.5); Mean Corpuscular Volume 98 fL (80-100); NRBC ABSOLUTE 0.08 K/mm3 (0.00-0.02); NRBC Auto 0.2 /100 WBC (0.0-0.2); Platelet Count 217 K/mm3 (150-400); RDW Coefficient Variation 19.3 % (11.7-14.2); RDW Standard Deviation 63.2 fL (35.1-46.3)
--- NOTE | 2025-05-24 04:35 | NUR ---
PHYSICIAN COMMUNICATION CONTACTED PROFESSIONAL BASS FISHER RESIDENT TO NOTIFY HER THAT THE PATIENT CURRENTLY HAS AN ORAL TEMP OF 102.6 WITH NO TYLENOL AVAILABLE TO TREAT WITH. TYLENOL PO 650 MG Q6 ORDERED.
[2025-05-24 04:38] LABS: Anion Gap 11.0 mmol/L (3-11); Blood Urea Nitrogen 9.0 mg/dL (8-24); CO2, Blood 19.0 mmol/L (21-32); Calcium, Blood 6.6 mg/dL (8.5-10.1); Chloride, Blood 114.0 mmol/L (98-108); Creatinine, Blood 1.18 mg/dL (0.40-1.00); Glucose, Blood 201.0 mg/dL (70-99); Magnesium, Blood 1.9 mg/dL (1.6-2.4); Potassium, Blood 3.7 mmol/L (3.5-5.5); Sodium, Blood 140.0 mmol/L (136-145)
[2025-05-24 05:23] LABS: BASOPHILS ABSOLUTE MAN 0.00 K/mm3 (0.00-0.23); BASOPHILS PERCENT MAN 0 % (0-2); BLASTS PERCENT MAN 5 % (0-0); EOSINOPHILS ABSOLUTE MAN 0.37 K/mm3 (0.00-0.68); EOSINOPHILS PERCENT MAN 1 % (0-6); LYMPHOCYTES ABSOLUTE MAN 8.95 K/mm3 (0.84-5.20); LYMPHOCYTES PERCENT MAN 24 % (21-46); MONOCYTES ABSOLUTE MAN 26.11 K/mm3 (0.16-1.47); MONOCYTES PERCENT MAN 70 % (4-13)
[2025-05-24 05:42] LABS: NEUTROPHILS ABSOLUTE MAN 0.00 K/mm3 (1.96-9.15); SEG NEUTROPHILS PERCENT MAN 0 % (41-73)
--- NOTE | 2025-05-24 06:23 | NUR ---
SHIFT SUMMARY PATIENT ALERT AND ORIENTED X4. WAS MEDICATED FOR FEVER WHICH IS RESOLVING. REPORTED ONE EPISODE OF CHEST PAIN WHEN TRANSFERRING TO [facility] BUT IT QUICKLY RESOLVED. AFTER PATIENT FELL ASLEEP SHE DESATED TO THE MID 80'S, WAS PLACED ON 2 LITERS O2 VIA NC, CURRENTLY SATING AROUND 94%. VITAL SIGNS STABLE. WILL CONTINUE TO MONITOR. CALL LIGHT WITHIN REACH.
[2025-05-24] MEDS ORDERED: Potassium Chloride 10 Meq Tablet SA PO ONE (08:55)
[2025-05-24] MEDS ORDERED: Isosorbide Mononitrate 30 MG TABCR PO SCH (09:00)
[2025-05-24] MEDS ORDERED: Calcium Citrate 315 MG/Vitamin D 250 IU Tab PO SCH (09:00)
[2025-05-24] MEDS ORDERED: MetFORMIN HCl 500 mg PO SCH (09:00)
[2025-05-24] MEDS ORDERED: Cholecalciferol 1000 Unit Tablet (=25MCG) PO SCH (09:00)
--- NOTE | 2025-05-24 09:30 | NUR ---
AM NOTE: PATIENT ALERT AND ORIENTED X4. FEELING TIRED AND WEAK. DENIES PAINS. UP WITH ONE PERSON ASSIST TO BSC/RECLINER. ON 2L NASAL CANNULA SATING ABOVE 95%. TITRATED TO ROOM AIR AND DESATS WITH MINIMAL TALKING AND ACTIVITY. CRACKLES HEARD IN BILATERAL BASES. OCCASIONAL DRY COUGH. TELE SHOWING SINUS RHYTHM WITH HR 80'S. SBP 90-100'S. MAPS 60-65. DR. AGUIAR CALLED THIS AM TO UPDATED ON BLOOD PRESSURE. ORDERS FOR MIDODRINE AND TO HOLD CARDIAC MEDS. SEE CHARTED VITALS FOR BLOOD PRESSURE TREND. PPP. IV SALINE INFUSING PER ORDERS. IV ABX INFUSED. NO EDEMA NOTED. DENIES CHEST PAIN/PRESSURE/PALPITATIONS. TOLERATING CLEAR LIQUID DIET AT THIS TIME. PUREWICK IN PLACE AT START OF SHIFT, REMOVED AND PATIENT ABLE TO GET UP TO BSC WITH 1 PERSON ASSIST. BOWEL TONES PRESENT. DENIES ABDOMINAL PAIN/NAUSEA. STILL NEEDING STOOL SAMPLE. PATIENT PASSING GAS. ATTENDS IN PLACE. SKIN C/D/I WITH SOME SCATTERED BRUISING.
--- NOTE | 2025-05-24 11:00 | NUR ---
DR. AGUIAR AND DR. MACHUCA TO BEDSIDE. THIS RN PRESENT FOR MD ROUNDING. THIS RN DISCUSSED WITH DR. AGUIAR PATIENT LABS (IONIZED CALCIUM, PTH, HGB AND WBC), LOVENOX, DIET, COLLECTED URINE AND NOSE SWAB, IV ABX, SEND OUT LABS, PT/OT AND DUONEBS. ORDERS FOR THIS RN TO PLACE INCLUDED: PT/OT, DC PO METFORMIN, ADVANCE DIET TOLERATED STARTING AT FULL LIQUID. NO PLAN FOR SCOPE AT THIS TIME. PATIENT RECIEVED BED BATH AND UP IN RECLINER AT THIS TIME. CALL LIGHT IN REACH.
[2025-05-24 11:36] LABS: Source, Urine Clean Catch
[2025-05-24 11:42] LABS: Bilirubin, Urine Neg (Neg); Glucose Qualitative, Urine 1+ (Neg); Ketones, Urine 1+ (Neg); Leukocyte Esterase, Urine Neg (Neg); Protein, Urine 2+ (Neg); Specific Gravity, Urine 1.010 (1.003-1.022); Urobilinogen, Urine NORM (Normal)
[2025-05-24 11:53] LABS: Color, Urine Pale Yellow (P-Yellow); Red Blood Cells, Urine 0-2 /hpf (0-2); White Blood Cells, Urine 0-2 /hpf (0-5)
--- NOTE | 2025-05-24 12:25 | NUR ---
CALL PLACED TO DR. AGUIAR TO UPDATE ON BLOOD PRESSURE. 90/44 WITH MAP OF 60. DR. JUNIOR TO PLACE ORDERS.
[2025-05-24 13:30] LABS: Stool Occult Blood Guaiac 1 Neg (Neg)
[2025-05-24] MEDS ORDERED: Sodium Phosphate 20 MM in Dextrose 5% 500 ML IV STA (14:14)
[2025-05-24] MEDS ORDERED: CALCIUM GLUC IN NACL, ISO-OSM 50 ML IV ONE (14:15)
[2025-05-24] MEDS ORDERED: Ipratropium/Albuterol SulF 2.5-0.5MG/3 ML Amp INH SCH (14:15)
[2025-05-24] MEDS ORDERED: Albuterol 2.5 MG/3 ML VIAL INH PRN (16:15)
--- NOTE | 2025-05-24 17:30 | NUR ---
PATIENT BLOOD PRESSURE REMAINS SOFT 107/[address] AGUIAR CALLED BY THIS RN. ORDERS FOR MIDODRINE 5MG PO BID STARTING NOW. ORDERS IN PLACE.
[2025-05-25] VITALS (9 sets, daily range): BP systolic 92–137; BP diastolic 50–66
[2025-05-25 01:17] LABS: Hematocrit 24.3 % (33.0-51.0); Hemoglobin 8.1 g/dL (11.5-16.0); Mean Corpuscular HGB Conc 33.3 g/dL (31.5-36.5); Mean Corpuscular Volume 101 fL (80-100); NRBC ABSOLUTE 0.10 K/mm3 (0.00-0.02); NRBC Auto 0.1 /100 WBC (0.0-0.2); Platelet Count 202 K/mm3 (150-400); RDW Coefficient Variation 19.0 % (11.7-14.2); RDW Standard Deviation 64.0 fL (35.1-46.3)
[2025-05-25 01:36] LABS: Alanine Aminotransfer (ALT/SGP 24.0 U/L (12-78); Albumin, Blood 2.4 g/dL (3.4-5.0); Albumin/Globulin Ratio 0.7 (0.8-1.8); Anion Gap 11.0 mmol/L (3-11); Aspartate Aminotrans (AST/SGOT 18.0 U/L (12-37); Bilirubin, Total 0.3 mg/dL (0.1-1.0); Blood Urea Nitrogen 13.0 mg/dL (8-24); CO2, Blood 18.0 mmol/L (21-32); Calcium, Blood 6.7 mg/dL (8.5-10.1); Chloride, Blood 115.0 mmol/L (98-108); Creatinine, Blood 1.36 mg/dL (0.40-1.00); Globulin, Blood 3.6 g/dL (2.2-4.0); Glucose, Blood 254.0 mg/dL (70-99); Magnesium, Blood 1.7 mg/dL (1.6-2.4); Phosphorus, Blood 2.8 mg/dL (2.5-4.9); Potassium, Blood 3.9 mmol/L (3.5-5.5); Sodium, Blood 140.0 mmol/L (136-145); Total Protein, Blood 6.0 g/dL (6.4-8.2)
[2025-05-25 01:48] LABS: BASOPHILS ABSOLUTE MAN 0.00 K/mm3 (0.00-0.23); BASOPHILS PERCENT MAN 0 % (0-2); BLASTS PERCENT MAN 2 % (0-0); EOSINOPHILS ABSOLUTE MAN 0.00 K/mm3 (0.00-0.68); EOSINOPHILS PERCENT MAN 0 % (0-6); LYMPHOCYTES % ATYPICAL MANUAL 1 % (0-0); LYMPHOCYTES ABSOLUTE MAN 15.48 K/mm3 (0.84-5.20); LYMPHOCYTES PERCENT MAN 20 % (21-46); METAMYELOCYTE ABSOLUTE MAN 0.73 K/mm3 (0.00-0.00); METAMYELOCYTE PERCENT MAN 1 % (0-0); MONOCYTES ABSOLUTE MAN 53.10 K/mm3 (0.16-1.47); MONOCYTES PERCENT MAN 72 % (4-13); MYELOCYTE ABSOLUTE MAN 0.73 K/mm3 (0.00-0.00); MYELOCYTE PERCENT MAN 1 % (0-0); NEUTROPHILS ABSOLUTE MAN 0.73 K/mm3 (1.96-9.15); PROMYELOCYTE ABSOLUTE MAN 1.47 K/mm3 (0.00-0.00); PROMYELOCYTE PERCENT MAN 2 % (0-0); SEG NEUTROPHILS PERCENT MAN 1 % (41-73)
--- NOTE | 2025-05-25 06:10 | NUR ---
PT HAD LABORED BREATHING AT THE BEGINNING OF THIS SHIFT. R.T. NOTIFIED. NEB TREATMENT GIVEN. PT PLACED ON BIPAP. SPO2 >92% ON BIPAP. CHEST XRAY ORDERED. PT IS PENDING CHEST CT. IV FLUIDS INFUSING. PURWIK IN PLACE. BED LOCKED IN LOWEST POSITION. BED ALARM ON. CALL LIGHT WITHIN REACH. PT FOLLOWS COMMANDS.
--- NOTE | 2025-05-25 09:00 | NUR ---
ASSUMED CARE NOTE; ASSUMED CARE OF PT AT 0700, PT IS ALERT AND ORIENTED X 4, ABLE TO COMMUNICATE NEEDS. PT REMAINS ON 2-4L OF OXYGEN VIA NC TO MAINTAIN SPO2 ABOVE 92% RR INCREASED, PT SOB WITH ACTIVITY. PT IN ST WITH HR IN THE 100-110'S, BLOOD PRESSURES SOFT. CALLED TO CLARIFY BP MEDICATION, ORDERS TO HOLD METROPOLOL AND IMDUR GIVEN. PUREWICK IN PLACE TO SUCTION. DENTURE CARE PROVIDED. FAMILY AT BEDSIDE.
[2025-05-25 09:59] LABS: HAPTOGLOBIN 366 mg/dL (30-200)
[2025-05-25 11:26] LABS: Lactate Dehydrogenase (Ld),Bld 324.0 U/L (100-240); Uric Acid, Blood 5.4 mg/dL (2.6-6.0)
[2025-05-25 12:30] LABS: CORONAVIRUS COVID-19 AG Negative (NEGATIVE)
--- NOTE | 2025-05-25 14:27 | NUR ---
TRANSFER CARE NOTE: PT IS ALERT AND ORIENTED X 4, ABLE TO COMMUNICATE NEEDS. PT REMAINS IN ST WITH HR BETWEEN 90-110, BP STABLE. PT DENIES ANY PAIN AT THIS TIME. PT SOB WITH ACTIVITY. PT SENT ON 4L OF OXYGEN VIA NC, SpO2 94% PT BLADDER SCANNED 470ML OF URINE NOTED, 16F BENÍTEZ PLACED PER ORDER. PT KHUSHBOO POWER GLIDE SALINE LOCKED FOR TRANSFER. REPORT CALLED TO NATHANIEL IN [facility]. PT LEFT THE UNIT AT 1420 VIA GURNEY. PATIENT BELONGINGS SENT WITH TRANSPORT TEAM, (PURSE AND CLOTHING); "YNES" (BROTHER) TOOK PATIENT'S TWO RINGS.
[2025-05-26 22:31] LABS: VITAMIN D,1,25-DIHYDROXY 74.2 pg/mL (19.9-79.3)
== END 2025-05-25 14:07 | disposition short-term general hospital (02) | DRG 834 ==
LOC: ER 18:50 → ERHOLD 22:21 → PCU 22:21
PROVIDERS: Emergency Medicine; Family Medicine; Student in an Organized Health Care Education/Training Program; Surgery; ADMIT Internal Medicine
PROC: 30233N1 Transfusion of Nonautologous Red Blood Cells into Peripheral Vein, Percutaneous Approach (ICD-10-PCS; principal; 2025-05-22)
PROC: 3E03329 Introduction of Other Anti-infective into Peripheral Vein, Percutaneous Approach (ICD-10-PCS; 2025-05-22)
DX: C95.00 Acute leukemia of unspecified cell type not having achieved remission (principal); A41.9 Sepsis, unspecified organism; J18.9 Pneumonia, unspecified organism; E78.5 Hyperlipidemia, unspecified; K21.9 Gastro-esophageal reflux disease without esophagitis; E87.5 Hyperkalemia; I25.10 Atherosclerotic heart disease of native coronary artery without angina pectoris; E11.51 Type 2 diabetes mellitus with diabetic peripheral angiopathy without gangrene; I12.9 Hypertensive chronic kidney disease with stage 1 through stage 4 chronic kidney disease, or unspecified chronic kidney disease; E11.22 Type 2 diabetes mellitus with diabetic chronic kidney disease; N18.32 Chronic kidney disease, stage 3b; D63.1 Anemia in chronic kidney disease; E87.6 Hypokalemia; E21.3 Hyperparathyroidism, unspecified; Z98.890 Other specified postprocedural states; Z95.5 Presence of coronary angioplasty implant and graft; Z87.442 Personal history of urinary calculi; Z79.4 Long term (current) use of insulin; Z79.84 Long term (current) use of oral hypoglycemic drugs; Z79.82 Long term (current) use of aspirin; Z79.899 Other long term (current) drug therapy; Z79.85 Long-term (current) use of injectable non-insulin antidiabetic drugs; Z79.52 Long term (current) use of systemic steroids; Z87.891 Personal history of nicotine dependence; Z90.710 Acquired absence of both cervix and uterus; Z90.49 Acquired absence of other specified parts of digestive tract; Z88.5 Allergy status to narcotic agent
CPT/HCPCS: 36415; 36430; 71045; 71260; 74177; 80048; 80053; 81001; 82248; 82270; 82306; 82330; 82607; 82652; 82728; 82746; 82947; 83010; 83540; 83550; 83605; 83615; 83735; 83880; 83970; 84100; 84145; 84484; 84550; 85014; 85018; 85025; 85027; 85045; 85610; 85651; 85730; 86140; 86850; 86900; 86901; 86923; 87040; 87086; 87426-QW; 87428-QW; 87449; 93005; 93010; 94640; 94660; 94664; 94762; 96365-59; 96375; 99285-25; A9270; J0456; J0612; J0696; J1650; J1815; J2405; J2470; J3480; J7030; J7050; J7060; P9016; Q9967

== ENCOUNTER → 2025-05-22 | Outpatient (CLI) | payer MEDICARE ==
[~2025-05-22] MED LIST changes: +PANT40 PO
[2025-05-22 18:06] LABS: BASOPHILS ABSOLUTE AUTO 0.01 K/mm3 (0.00-0.23); BASOPHILS PERCENT AUTO 0 % (0-2); Hematocrit 18.0 % (33.0-51.0); Hemoglobin 6.1 g/dL (11.5-16.0); Mean Corpuscular HGB Conc 33.9 g/dL (31.5-36.5); Mean Corpuscular Volume 103 fL (80-100); NRBC ABSOLUTE 0.04 K/mm3 (0.00-0.02); NRBC Auto 0.1 /100 WBC (0.0-0.2); Platelet Count 280 K/mm3 (150-400); RDW Coefficient Variation 17.5 % (11.7-14.2); RDW Standard Deviation 61.9 fL (35.1-46.3)
[2025-05-22 18:09] LABS: EOSINOPHILS ABSOLUTE AUTO 0.02 K/mm3 (0.00-0.68); EOSINOPHILS PERCENT AUTO 0 % (0-6); IMMATURE GRAN ABSOLUTE AUTO 0.06 K/mm3 (0.00-0.10); IMMATURE GRAN PERCENT AUTO 0 % (0-1); LYMPHOCYTES ABSOLUTE AUTO 8.86 K/mm3 (0.84-5.20); LYMPHOCYTES PERCENT AUTO 32 % (21-46); MONOCYTES ABSOLUTE AUTO 18.02 K/mm3 (0.16-1.47); MONOCYTES PERCENT AUTO 65 % (4-13); NEUTROPHILS ABSOLUTE AUTO 0.63 K/mm3 (1.96-9.15); NEUTROPHILS PERCENT AUTO 2 % (41-73)
[2025-05-22 18:15] LABS: Alanine Aminotransfer (ALT/SGP 17.0 U/L (12-78); Albumin, Blood 2.8 g/dL (3.4-5.0); Albumin/Globulin Ratio 0.8 (0.8-1.8); Anion Gap 10.0 mmol/L (3-11); Aspartate Aminotrans (AST/SGOT 16.0 U/L (12-37); Bilirubin, Total 0.4 mg/dL (0.1-1.0); Blood Urea Nitrogen 13.0 mg/dL (8-24); CO2, Blood 26.0 mmol/L (21-32); Calcium, Blood 8.2 mg/dL (8.5-10.1); Chloride, Blood 105.0 mmol/L (98-108); Creatinine, Blood 1.47 mg/dL (0.40-1.00); Globulin, Blood 3.5 g/dL (2.2-4.0); Glucose, Blood 85.0 mg/dL (70-99); Potassium, Blood 3.4 mmol/L (3.5-5.5); Sodium, Blood 138.0 mmol/L (136-145); Total Protein, Blood 6.3 g/dL (6.4-8.2)
[2025-05-22 18:33] LABS: LYMPHOCYTES ABSOLUTE MAN 8.28 K/mm3 (0.84-5.20); LYMPHOCYTES PERCENT MAN 30 % (21-46); MONOCYTES ABSOLUTE MAN 18.76 K/mm3 (0.16-1.47); MONOCYTES PERCENT MAN 68 % (4-13); NEUTROPHILS ABSOLUTE MAN 0.55 K/mm3 (1.96-9.15); SEG NEUTROPHILS PERCENT MAN 2 % (41-73)
== END | disposition home or self-care (01) ==
LOC: LAB 17:56 → LAB SHORT 17:56
PROVIDERS: Emergency Medicine
DX: J90 Pleural effusion, not elsewhere classified (principal)
CPT/HCPCS: 80053; 83605; 85025; 87040

== ENCOUNTER 2025-06-26 01:00 | Day surgery (SDC) | payer MEDICARE ==
[~2025-06-26 01:00] MED LIST changes: +PANT40 PO
[2025-06-26 07:40] VITALS: BP 140/62
[2025-06-26 09:15] LABS: BASOPHILS ABSOLUTE AUTO 0.01 K/mm3 (0.00-0.23); BASOPHILS PERCENT AUTO 0 % (0-2); EOSINOPHILS ABSOLUTE AUTO 0.00 K/mm3 (0.00-0.68); EOSINOPHILS PERCENT AUTO 0 % (0-6); Hematocrit 29.2 % (33.0-51.0); Hemoglobin 9.6 g/dL (11.5-16.0); IMMATURE GRAN ABSOLUTE AUTO 0.04 K/mm3 (0.00-0.10); IMMATURE GRAN PERCENT AUTO 1 % (0-1); LYMPHOCYTES ABSOLUTE AUTO 0.64 K/mm3 (0.84-5.20); LYMPHOCYTES PERCENT AUTO 17 % (21-46); MONOCYTES ABSOLUTE AUTO 2.10 K/mm3 (0.16-1.47); MONOCYTES PERCENT AUTO 54 % (4-13); Mean Corpuscular HGB Conc 32.9 g/dL (31.5-36.5); Mean Corpuscular Volume 94 fL (80-100); NEUTROPHILS ABSOLUTE AUTO 1.10 K/mm3 (1.96-9.15); NEUTROPHILS PERCENT AUTO 28 % (41-73); NRBC ABSOLUTE 0.00 K/mm3 (0.00-0.02); NRBC Auto 0.0 /100 WBC (0.0-0.2); Platelet Count 872 K/mm3 (150-400); RDW Coefficient Variation 15.9 % (11.7-14.2); RDW Standard Deviation 45.2 fL (35.1-46.3)
[2025-06-26 09:49] LABS: Alanine Aminotransfer (ALT/SGP 28.0 U/L (12-78); Albumin, Blood 3.0 g/dL (3.4-5.0); Albumin/Globulin Ratio 0.8 (0.8-1.8); Anion Gap 10.0 mmol/L (3-11); Aspartate Aminotrans (AST/SGOT 16.0 U/L (12-37); Bilirubin, Total 0.4 mg/dL (0.1-1.0); Blood Urea Nitrogen 9.0 mg/dL (8-24); CO2, Blood 25.0 mmol/L (21-32); Calcium, Blood 8.9 mg/dL (8.5-10.1); Chloride, Blood 110.0 mmol/L (98-108); Creatinine, Blood 1.04 mg/dL (0.40-1.00); Globulin, Blood 4.0 g/dL (2.2-4.0); Glucose, Blood 97.0 mg/dL (70-99); Lactate Dehydrogenase (Ld),Bld 219.0 U/L (100-240); Magnesium, Blood 2.3 mg/dL (1.6-2.4); Phosphorus, Blood 3.0 mg/dL (2.5-4.9); Potassium, Blood 3.7 mmol/L (3.5-5.5); Sodium, Blood 141.0 mmol/L (136-145); Total Protein, Blood 7.0 g/dL (6.4-8.2); Uric Acid, Blood 4.1 mg/dL (2.6-6.0)
== END 2025-06-26 07:44 | disposition home or self-care (01) ==
LOC: ATC 01:00
DX: C93.00 Acute monoblastic/monocytic leukemia, not having achieved remission (principal); I13.0 Hypertensive heart and chronic kidney disease with heart failure and stage 1 through stage 4 chronic kidney disease, or unspecified chronic kidney disease; E11.22 Type 2 diabetes mellitus with diabetic chronic kidney disease; N18.9 Chronic kidney disease, unspecified; I50.9 Heart failure, unspecified; N17.9 Acute kidney failure, unspecified; E78.5 Hyperlipidemia, unspecified; K21.9 Gastro-esophageal reflux disease without esophagitis; I25.10 Atherosclerotic heart disease of native coronary artery without angina pectoris; Z79.899 Other long term (current) drug therapy
CPT/HCPCS: 36592; 80053; 83615; 83735; 84100; 84550; 85025

== ENCOUNTER 2025-07-10 09:04 | Day surgery (SDC) | payer MEDICARE ==
[2025-07-10 09:30] VITALS: BP 107/53
[2025-07-10 09:54] LABS: BASOPHILS ABSOLUTE AUTO 0.00 K/mm3 (0.00-0.23); BASOPHILS PERCENT AUTO 0 % (0-2); EOSINOPHILS ABSOLUTE AUTO 0.00 K/mm3 (0.00-0.68); EOSINOPHILS PERCENT AUTO 0 % (0-6); Hematocrit 27.1 % (33.0-51.0); Hemoglobin 9.0 g/dL (11.5-16.0); Mean Corpuscular HGB Conc 33.2 g/dL (31.5-36.5); Mean Corpuscular Volume 98 fL (80-100); NRBC ABSOLUTE 0.00 K/mm3 (0.00-0.02); NRBC Auto 0.0 /100 WBC (0.0-0.2); Platelet Count 238 K/mm3 (150-400); RDW Coefficient Variation 18.6 % (11.7-14.2); RDW Standard Deviation 63.9 fL (35.1-46.3)
[2025-07-10 10:02] LABS: IMMATURE GRAN ABSOLUTE AUTO 0.02 K/mm3 (0.00-0.10); IMMATURE GRAN PERCENT AUTO 0 % (0-1); LYMPHOCYTES ABSOLUTE AUTO 0.29 K/mm3 (0.84-5.20); LYMPHOCYTES PERCENT AUTO 6 % (21-46); MONOCYTES ABSOLUTE AUTO 0.02 K/mm3 (0.16-1.47); MONOCYTES PERCENT AUTO 0 % (4-13); NEUTROPHILS ABSOLUTE AUTO 4.17 K/mm3 (1.96-9.15); NEUTROPHILS PERCENT AUTO 93 % (41-73)
[2025-07-10 10:16] LABS: Alanine Aminotransfer (ALT/SGP 27.0 U/L (12-78); Albumin, Blood 3.1 g/dL (3.4-5.0); Albumin/Globulin Ratio 0.9 (0.8-1.8); Anion Gap 8.0 mmol/L (3-11); Aspartate Aminotrans (AST/SGOT 25.0 U/L (12-37); Bilirubin, Total 0.6 mg/dL (0.1-1.0); Blood Urea Nitrogen 29.0 mg/dL (8-24); CO2, Blood 25.0 mmol/L (21-32); Calcium, Blood 8.9 mg/dL (8.5-10.1); Chloride, Blood 109.0 mmol/L (98-108); Creatinine, Blood 0.98 mg/dL (0.40-1.00); Globulin, Blood 3.6 g/dL (2.2-4.0); Glucose, Blood 242.0 mg/dL (70-99); Lactate Dehydrogenase (Ld),Bld 212.0 U/L (100-240); Magnesium, Blood 2.2 mg/dL (1.6-2.4); Phosphorus, Blood 3.9 mg/dL (2.5-4.9); Potassium, Blood 4.1 mmol/L (3.5-5.5); Sodium, Blood 138.0 mmol/L (136-145); Total Protein, Blood 6.7 g/dL (6.4-8.2); Uric Acid, Blood 5.0 mg/dL (2.6-6.0)
== END 2025-07-10 09:36 | disposition home or self-care (01) ==
LOC: ATC 09:04
DX: C93.00 Acute monoblastic/monocytic leukemia, not having achieved remission (principal); D63.0 Anemia in neoplastic disease; I13.0 Hypertensive heart and chronic kidney disease with heart failure and stage 1 through stage 4 chronic kidney disease, or unspecified chronic kidney disease; E11.22 Type 2 diabetes mellitus with diabetic chronic kidney disease; N18.9 Chronic kidney disease, unspecified; I50.9 Heart failure, unspecified; N17.9 Acute kidney failure, unspecified; E78.5 Hyperlipidemia, unspecified; K21.9 Gastro-esophageal reflux disease without esophagitis; I25.10 Atherosclerotic heart disease of native coronary artery without angina pectoris; J43.2 Centrilobular emphysema; I95.9 Hypotension, unspecified; I25.2 Old myocardial infarction; J96.91 Respiratory failure, unspecified with hypoxia
CPT/HCPCS: 36592; 80053; 83615; 83735; 84100; 84550; 85025

== ENCOUNTER 2025-07-14 03:55 | Day surgery (SDC) | payer MEDICARE ==
[2025-07-14 07:18] VITALS: BP 130/57
[2025-07-14 07:58] LABS: Hematocrit 22.5 % (33.0-51.0); Hemoglobin 7.6 g/dL (11.5-16.0); Mean Corpuscular HGB Conc 33.8 g/dL (31.5-36.5); Mean Corpuscular Volume 96 fL (80-100); NRBC ABSOLUTE 0.00 K/mm3 (0.00-0.02); NRBC Auto 0.0 /100 WBC (0.0-0.2); Platelet Count 93 K/mm3 (150-400); RDW Coefficient Variation 17.7 % (11.7-14.2); RDW Standard Deviation 60.7 fL (35.1-46.3)
[2025-07-14 08:04] LABS: BASOPHILS ABSOLUTE AUTO 0.00 K/mm3 (0.00-0.23); BASOPHILS PERCENT AUTO 0 % (0-2); EOSINOPHILS ABSOLUTE AUTO 0.00 K/mm3 (0.00-0.68); EOSINOPHILS PERCENT AUTO 0 % (0-6); IMMATURE GRAN ABSOLUTE AUTO 0.00 K/mm3 (0.00-0.10); IMMATURE GRAN PERCENT AUTO 0 % (0-1); LYMPHOCYTES ABSOLUTE AUTO 0.25 K/mm3 (0.84-5.20); LYMPHOCYTES PERCENT AUTO 68 % (21-46); MONOCYTES ABSOLUTE AUTO 0.04 K/mm3 (0.16-1.47); MONOCYTES PERCENT AUTO 11 % (4-13); NEUTROPHILS ABSOLUTE AUTO 0.08 K/mm3 (1.96-9.15); NEUTROPHILS PERCENT AUTO 22 % (41-73)
[2025-07-14 08:18] LABS: Alanine Aminotransfer (ALT/SGP 27.0 U/L (12-78); Albumin, Blood 3.2 g/dL (3.4-5.0); Albumin/Globulin Ratio 1.0 (0.8-1.8); Anion Gap 8.0 mmol/L (3-11); Aspartate Aminotrans (AST/SGOT 24.0 U/L (12-37); Bilirubin, Total 0.5 mg/dL (0.1-1.0); Blood Urea Nitrogen 27.0 mg/dL (8-24); CO2, Blood 24.0 mmol/L (21-32); Calcium, Blood 8.5 mg/dL (8.5-10.1); Chloride, Blood 111.0 mmol/L (98-108); Creatinine, Blood 0.9 mg/dL (0.40-1.00); Globulin, Blood 3.1 g/dL (2.2-4.0); Glucose, Blood 205.0 mg/dL (70-99); Lactate Dehydrogenase (Ld),Bld 170.0 U/L (100-240); Magnesium, Blood 2.0 mg/dL (1.6-2.4); Phosphorus, Blood 2.9 mg/dL (2.5-4.9); Potassium, Blood 4.1 mmol/L (3.5-5.5); Sodium, Blood 139.0 mmol/L (136-145); Total Protein, Blood 6.3 g/dL (6.4-8.2); Uric Acid, Blood 3.6 mg/dL (2.6-6.0)
--- NOTE | 2025-07-14 10:33 | NUR ---
LABS FAXED TO [facility]
== END 2025-07-14 07:37 | disposition home or self-care (01) ==
LOC: ATC 03:55
DX: C93.00 Acute monoblastic/monocytic leukemia, not having achieved remission (principal); N17.9 Acute kidney failure, unspecified; I25.10 Atherosclerotic heart disease of native coronary artery without angina pectoris; I11.0 Hypertensive heart disease with heart failure; I50.9 Heart failure, unspecified; I25.2 Old myocardial infarction; I95.9 Hypotension, unspecified; E11.9 Type 2 diabetes mellitus without complications; D64.89 Other specified anemias; J96.01 Acute respiratory failure with hypoxia; Z79.4 Long term (current) use of insulin; Z79.82 Long term (current) use of aspirin; Z79.84 Long term (current) use of oral hypoglycemic drugs; Z79.899 Other long term (current) drug therapy; Z87.891 Personal history of nicotine dependence
CPT/HCPCS: 36592; 80053; 83615; 83735; 84100; 84550; 85025

== ENCOUNTER 2025-07-17 00:11 | Day surgery (SDC) | payer MEDICARE ==
[2025-07-17] MEDS ORDERED: NS 250 ML IV SCH (07:00)
--- NOTE | 2025-07-17 13:40 | NUR ---
Pt routinely scheduled for lab draws on Mon and each week. Offered to draw labs post transfusion today, pt declined. Pt states she will have labs drawn again on Monday when she has her PICC line dressing changed.
[2025-07-17 13:56] VITALS: BP 110/75
[2025-07-17 14:57] VITALS: BP 97/57
[2025-07-17 15:30] VITALS: BP 127/57
== END 2025-07-17 15:34 ==
LOC: ATC 00:11
DX: C93.00 Acute monoblastic/monocytic leukemia, not having achieved remission (principal); I25.10 Atherosclerotic heart disease of native coronary artery without angina pectoris; I25.2 Old myocardial infarction; I11.0 Hypertensive heart disease with heart failure; I50.9 Heart failure, unspecified; N17.9 Acute kidney failure, unspecified; E11.9 Type 2 diabetes mellitus without complications; J43.2 Centrilobular emphysema; J44.89 Other specified chronic obstructive pulmonary disease; Z79.82 Long term (current) use of aspirin; Z79.85 Long-term (current) use of injectable non-insulin antidiabetic drugs; Z79.84 Long term (current) use of oral hypoglycemic drugs; Z79.899 Other long term (current) drug therapy; Z91.0110 Allergy to milk products, unspecified
CPT/HCPCS: 36415; 36430; 86850; 86900; 86901; 86923; J7050; P9016

== ENCOUNTER 2025-07-21 01:53 | Day surgery (SDC) | payer MEDICARE ==
[2025-07-21 10:08] VITALS: BP 129/65
--- NOTE | 2025-07-21 10:56 | NUR ---
PT REPORTS HAVING FALLEN IN THE HOSPITAL HALLWAY NEAR THE IMAGING DEPT AFTER A BLOOD TRANSFUSION ON THE SECOND FLOOR ON June,. PT FEELS THOUGH SHE MAY HAVE DISLOCATED OR BROKE A RIB. PT HAS A SOFTBALL SIZE BRUISE ON LEFT OUTER THIGH JUST BELOW THE HIP. THE SKIN UNDERNEATH HAS A LARGE KNOT THAT CAN BE FELT WITH PALPATION. PT REPORTS NO HOSPITAL STAFF TOOK A REPORT AND THAT 2 MEN HELPED HER UP AND TO THE EXIT. ENCOURAGED PT TO SWING BY THE URGENT CARE FOR EVALUATION THE PT DOES NOT WANT TO GO TO THE ER AND SHE CANNOT GET INTO HER PCP SOON. NO SIGNS TODAY OF IMMEDIATE DISTRESS FROM THE FALL. PT STATES THAT ONE OF THE MEN THAT HELPED HER UP REPORTED THAT THEY HAD JUST MOPPED THE FLOOR WHERE THE PT HAD FALLEN.
[2025-07-21 11:00] LABS: Hematocrit 21.6 % (33.0-51.0); Hemoglobin 7.3 g/dL (11.5-16.0); Mean Corpuscular HGB Conc 33.8 g/dL (31.5-36.5); Mean Corpuscular Volume 93 fL (80-100); NRBC ABSOLUTE 0.00 K/mm3 (0.00-0.02); NRBC Auto 0.0 /100 WBC (0.0-0.2); RDW Coefficient Variation 16.6 % (11.7-14.2); RDW Standard Deviation 55.3 fL (35.1-46.3)
[2025-07-21 11:11] LABS: BASOPHILS ABSOLUTE AUTO 0.00 K/mm3 (0.00-0.23); BASOPHILS PERCENT AUTO 0 % (0-2); EOSINOPHILS ABSOLUTE AUTO 0.00 K/mm3 (0.00-0.68); EOSINOPHILS PERCENT AUTO 0 % (0-6); IMMATURE GRAN ABSOLUTE AUTO 0.01 K/mm3 (0.00-0.10); IMMATURE GRAN PERCENT AUTO 3 % (0-1); LYMPHOCYTES ABSOLUTE AUTO 0.30 K/mm3 (0.84-5.20); LYMPHOCYTES PERCENT AUTO 75 % (21-46); MONOCYTES ABSOLUTE AUTO 0.02 K/mm3 (0.16-1.47); MONOCYTES PERCENT AUTO 5 % (4-13); NEUTROPHILS ABSOLUTE AUTO 0.07 K/mm3 (1.96-9.15); NEUTROPHILS PERCENT AUTO 18 % (41-73)
--- NOTE | 2025-07-21 11:19 | NUR ---
THIS RN [facility] CRITICAL LAB VALUES OF WBC 0.4 AND PLATELET 6. DISCUSSED W/ RERE Spaulding MD TO BE NOTIFIED BY LAB. LAB UPDATED - TECH TO CONTACT MD REGARDING RESULTS.
[2025-07-21 11:31] LABS: Alanine Aminotransfer (ALT/SGP 23.0 U/L (12-78); Albumin, Blood 3.1 g/dL (3.4-5.0); Albumin/Globulin Ratio 0.9 (0.8-1.8); Anion Gap 8.0 mmol/L (3-11); Aspartate Aminotrans (AST/SGOT 23.0 U/L (12-37); Bilirubin, Total 0.5 mg/dL (0.1-1.0); Blood Urea Nitrogen 25.0 mg/dL (8-24); CO2, Blood 24.0 mmol/L (21-32); Calcium, Blood 8.6 mg/dL (8.5-10.1); Chloride, Blood 110.0 mmol/L (98-108); Creatinine, Blood 0.88 mg/dL (0.40-1.00); Globulin, Blood 3.4 g/dL (2.2-4.0); Glucose, Blood 199.0 mg/dL (70-99); Lactate Dehydrogenase (Ld),Bld 190.0 U/L (100-240); Magnesium, Blood 2.1 mg/dL (1.6-2.4); Phosphorus, Blood 3.4 mg/dL (2.5-4.9); Potassium, Blood 4.1 mmol/L (3.5-5.5); Sodium, Blood 138.0 mmol/L (136-145); Total Protein, Blood 6.5 g/dL (6.4-8.2); Uric Acid, Blood 4.0 mg/dL (2.6-6.0)
[2025-07-21 11:37] LABS: Platelet Count 6 K/mm3 (150-400)
--- NOTE | 2025-07-21 12:19 | NUR ---
LAB RESULTS FAXED TO [facility]
== END 2025-07-21 10:34 | disposition home or self-care (01) ==
LOC: ATC 01:53
DX: C93.00 Acute monoblastic/monocytic leukemia, not having achieved remission (principal); D64.89 Other specified anemias; E11.9 Type 2 diabetes mellitus without complications; E78.5 Hyperlipidemia, unspecified; I11.0 Hypertensive heart disease with heart failure; I50.9 Heart failure, unspecified; I25.10 Atherosclerotic heart disease of native coronary artery without angina pectoris; I95.9 Hypotension, unspecified; I25.2 Old myocardial infarction; J96.01 Acute respiratory failure with hypoxia; J43.9 Emphysema, unspecified; K21.9 Gastro-esophageal reflux disease without esophagitis; N17.9 Acute kidney failure, unspecified; Z79.4 Long term (current) use of insulin; Z79.82 Long term (current) use of aspirin; Z79.84 Long term (current) use of oral hypoglycemic drugs; Z79.899 Other long term (current) drug therapy
CPT/HCPCS: 36592; 80053; 83615; 83735; 84100; 84550; 85025

== ENCOUNTER 2025-07-22 07:58 | Day surgery (SDC) | payer MEDICARE ==
[2025-07-22] MEDS ORDERED: NS 500 ML IV SCH (13:55)
[2025-07-22 14:45] VITALS: BP 126/50
[2025-07-22 15:01] VITALS: BP 112/53
[2025-07-22 15:31] VITALS: BP 112/47
[2025-07-22 15:54] VITALS: BP 108/55
== END 2025-07-22 17:32 | disposition home or self-care (01) ==
LOC: ATC 07:58
DX: C92.50 Acute myelomonocytic leukemia, not having achieved remission (principal); D69.6 Thrombocytopenia, unspecified; I10 Essential (primary) hypertension; I25.10 Atherosclerotic heart disease of native coronary artery without angina pectoris; E11.9 Type 2 diabetes mellitus without complications; Z79.4 Long term (current) use of insulin; Z79.82 Long term (current) use of aspirin; Z79.84 Long term (current) use of oral hypoglycemic drugs; Z79.899 Other long term (current) drug therapy; Z87.891 Personal history of nicotine dependence
CPT/HCPCS: 36430; 86850; 86900; 86901; 86923; 99211; J7040; P9016; P9035

== ENCOUNTER 2025-07-25 07:10 | Day surgery (SDC) | payer MEDICARE ==
[2025-07-24 08:10] VITALS: BP 120/71
[2025-07-24 08:36] LABS: Hematocrit 23.0 % (33.0-51.0); Hemoglobin 8.0 g/dL (11.5-16.0); Mean Corpuscular HGB Conc 34.8 g/dL (31.5-36.5); Mean Corpuscular Volume 92 fL (80-100); NRBC ABSOLUTE 0.00 K/mm3 (0.00-0.02); NRBC Auto 0.0 /100 WBC (0.0-0.2); RDW Coefficient Variation 15.5 % (11.7-14.2); RDW Standard Deviation 50.7 fL (35.1-46.3)
[2025-07-24 08:39] LABS: BASOPHILS ABSOLUTE AUTO 0.00 K/mm3 (0.00-0.23); BASOPHILS PERCENT AUTO 0 % (0-2); EOSINOPHILS ABSOLUTE AUTO 0.00 K/mm3 (0.00-0.68); EOSINOPHILS PERCENT AUTO 0 % (0-6); IMMATURE GRAN ABSOLUTE AUTO 0.02 K/mm3 (0.00-0.10); IMMATURE GRAN PERCENT AUTO 7 % (0-1); LYMPHOCYTES ABSOLUTE AUTO 0.25 K/mm3 (0.84-5.20); LYMPHOCYTES PERCENT AUTO 86 % (21-46); MONOCYTES ABSOLUTE AUTO 0.01 K/mm3 (0.16-1.47); MONOCYTES PERCENT AUTO 3 % (4-13); NEUTROPHILS ABSOLUTE AUTO 0.01 K/mm3 (1.96-9.15); NEUTROPHILS PERCENT AUTO 4 % (41-73)
[2025-07-24 08:41] LABS: Platelet Count 30 K/mm3 (150-400)
[2025-07-24 08:57] LABS: Alanine Aminotransfer (ALT/SGP 23.0 U/L (12-78); Albumin, Blood 3.1 g/dL (3.4-5.0); Albumin/Globulin Ratio 0.9 (0.8-1.8); Anion Gap 7.0 mmol/L (3-11); Aspartate Aminotrans (AST/SGOT 25.0 U/L (12-37); Bilirubin, Total 0.7 mg/dL (0.1-1.0); Blood Urea Nitrogen 17.0 mg/dL (8-24); CO2, Blood 26.0 mmol/L (21-32); Calcium, Blood 8.9 mg/dL (8.5-10.1); Chloride, Blood 111.0 mmol/L (98-108); Creatinine, Blood 0.8 mg/dL (0.40-1.00); Globulin, Blood 3.6 g/dL (2.2-4.0); Glucose, Blood 99.0 mg/dL (70-99); Lactate Dehydrogenase (Ld),Bld 204.0 U/L (100-240); Magnesium, Blood 2.0 mg/dL (1.6-2.4); Phosphorus, Blood 3.1 mg/dL (2.5-4.9); Potassium, Blood 4.2 mmol/L (3.5-5.5); Sodium, Blood 140.0 mmol/L (136-145); Total Protein, Blood 6.7 g/dL (6.4-8.2); Uric Acid, Blood 3.7 mg/dL (2.6-6.0)
[~2025-07-25 07:10] MED LIST changes: +NS 250 ML IV SCH
[2025-07-25 07:20] VITALS: BP 114/75
[2025-07-25 07:45] VITALS: BP 131/63
[2025-07-25 08:42] VITALS: BP 140/63
[2025-07-25 09:05] VITALS: BP 137/62
--- NOTE | 2025-07-25 10:19 | NUR ---
NORMAL SALINE FOR BLOOD PRIME/FLUSH BAG OF NORMAL SALINE FOR THIS PATIENT WAS A 250ML BAG, EMAR APPEARS TO LOOK IF IT WAS A 1000ML BAD. VERIFIED 250ML BAG USED.
== END 2025-07-25 09:10 | disposition home or self-care (01) ==
LOC: ATC 07:10
PROVIDERS: Internal Medicine Hematology & Oncology
DX: C93.00 Acute monoblastic/monocytic leukemia, not having achieved remission (principal); D63.0 Anemia in neoplastic disease; E11.9 Type 2 diabetes mellitus without complications; I25.10 Atherosclerotic heart disease of native coronary artery without angina pectoris; I11.0 Hypertensive heart disease with heart failure; I50.9 Heart failure, unspecified; E78.5 Hyperlipidemia, unspecified; K21.9 Gastro-esophageal reflux disease without esophagitis; I95.9 Hypotension, unspecified; J43.9 Emphysema, unspecified; Z87.891 Personal history of nicotine dependence; Z79.4 Long term (current) use of insulin; Z79.82 Long term (current) use of aspirin; Z79.84 Long term (current) use of oral hypoglycemic drugs; Z79.899 Other long term (current) drug therapy
CPT/HCPCS: 36430; 36591; 80053; 83615; 83735; 84100; 84550; 85025; 86850; 86900; 86901; 86923; 99211; J7030; P9016

== ENCOUNTER 2025-07-29 13:28 | Day surgery (SDC) | payer MEDICARE ==
[2025-07-28 11:15] VITALS: BP 102/88
[2025-07-28 12:09] LABS: Hematocrit 23.4 % (33.0-51.0); Hemoglobin 8.1 g/dL (11.5-16.0); Mean Corpuscular HGB Conc 34.6 g/dL (31.5-36.5); Mean Corpuscular Volume 90 fL (80-100); NRBC ABSOLUTE 0.00 K/mm3 (0.00-0.02); NRBC Auto 0.0 /100 WBC (0.0-0.2); RDW Coefficient Variation 14.8 % (11.7-14.2); RDW Standard Deviation 47.3 fL (35.1-46.3)
[2025-07-28 12:17] LABS: BASOPHILS ABSOLUTE AUTO 0.00 K/mm3 (0.00-0.23); BASOPHILS PERCENT AUTO 0 % (0-2); EOSINOPHILS ABSOLUTE AUTO 0.00 K/mm3 (0.00-0.68); EOSINOPHILS PERCENT AUTO 0 % (0-6); IMMATURE GRAN ABSOLUTE AUTO 0.00 K/mm3 (0.00-0.10); IMMATURE GRAN PERCENT AUTO 0 % (0-1); LYMPHOCYTES ABSOLUTE AUTO 0.30 K/mm3 (0.84-5.20); LYMPHOCYTES PERCENT AUTO 91 % (21-46); MONOCYTES ABSOLUTE AUTO 0.01 K/mm3 (0.16-1.47); MONOCYTES PERCENT AUTO 3 % (4-13); NEUTROPHILS ABSOLUTE AUTO 0.02 K/mm3 (1.96-9.15); NEUTROPHILS PERCENT AUTO 6 % (41-73)
[2025-07-28 12:18] LABS: Platelet Count 8 K/mm3 (150-400)
[2025-07-28 12:29] LABS: Alanine Aminotransfer (ALT/SGP 24.0 U/L (12-78); Albumin, Blood 3.1 g/dL (3.4-5.0); Albumin/Globulin Ratio 0.8 (0.8-1.8); Anion Gap 9.0 mmol/L (3-11); Aspartate Aminotrans (AST/SGOT 27.0 U/L (12-37); Bilirubin, Total 0.5 mg/dL (0.1-1.0); Blood Urea Nitrogen 29.0 mg/dL (8-24); CO2, Blood 23.0 mmol/L (21-32); Calcium, Blood 8.6 mg/dL (8.5-10.1); Chloride, Blood 113.0 mmol/L (98-108); Creatinine, Blood 0.96 mg/dL (0.40-1.00); Globulin, Blood 3.7 g/dL (2.2-4.0); Glucose, Blood 150.0 mg/dL (70-99); Lactate Dehydrogenase (Ld),Bld 197.0 U/L (100-240); Magnesium, Blood 2.2 mg/dL (1.6-2.4); Phosphorus, Blood 3.3 mg/dL (2.5-4.9); Potassium, Blood 4.0 mmol/L (3.5-5.5); Sodium, Blood 141.0 mmol/L (136-145); Total Protein, Blood 6.8 g/dL (6.4-8.2); Uric Acid, Blood 3.8 mg/dL (2.6-6.0)
[2025-07-28 13:10] LABS: BASOPHILS ABSOLUTE MAN 0.00 K/mm3 (0.00-0.23); BASOPHILS PERCENT MAN 0 % (0-2); EOSINOPHILS ABSOLUTE MAN 0.00 K/mm3 (0.00-0.68); EOSINOPHILS PERCENT MAN 0 % (0-6); LYMPHOCYTES ABSOLUTE MAN 0.29 K/mm3 (0.84-5.20); LYMPHOCYTES PERCENT MAN 88 % (21-46); MONOCYTES ABSOLUTE MAN 0.00 K/mm3 (0.16-1.47); MONOCYTES PERCENT MAN 0 % (4-13); NEUTROPHILS ABSOLUTE MAN 0.03 K/mm3 (1.96-9.15); SEG NEUTROPHILS PERCENT MAN 12 % (41-73)
--- NOTE | 2025-07-28 17:29 | NUR ---
LABS FAXED TO [facility]
[2025-07-29 13:16] VITALS: BP 100/56
[~2025-07-29 13:28] MED LIST changes: -NS 250 ML IV SCH
[2025-07-29] MEDS ORDERED: NS 250 ML IV SCH (13:30)
[2025-07-29 13:39] VITALS: BP 107/43
[2025-07-29 13:57] VITALS: BP 105/49
[2025-07-29 14:24] VITALS: BP 116/54
[2025-07-29 14:44] VITALS: BP 108/49
[2025-07-29 16:47] VITALS: BP 130/50
== END 2025-07-29 16:11 ==
LOC: ATC 13:28
DX: C93.00 Acute monoblastic/monocytic leukemia, not having achieved remission (principal); D64.81 Anemia due to antineoplastic chemotherapy; E11.9 Type 2 diabetes mellitus without complications; E78.5 Hyperlipidemia, unspecified; I11.0 Hypertensive heart disease with heart failure; I50.9 Heart failure, unspecified; I25.10 Atherosclerotic heart disease of native coronary artery without angina pectoris; N17.9 Acute kidney failure, unspecified; Z87.891 Personal history of nicotine dependence; Z79.899 Other long term (current) drug therapy; Z79.82 Long term (current) use of aspirin; Z79.85 Long-term (current) use of injectable non-insulin antidiabetic drugs; Z79.4 Long term (current) use of insulin; Z79.84 Long term (current) use of oral hypoglycemic drugs
CPT/HCPCS: 36430; 36591; 80053; 83615; 83735; 84100; 84550; 85025; 86850; 86900; 86901; 86923; P9016; P9035

== ENCOUNTER 2025-07-31 01:57 | Day surgery (SDC) | payer MEDICARE ==
[2025-07-31 08:20] VITALS: BP 126/65
[2025-07-31 08:55] LABS: Hematocrit 25.5 % (33.0-51.0); Hemoglobin 8.9 g/dL (11.5-16.0); Mean Corpuscular HGB Conc 34.9 g/dL (31.5-36.5); Mean Corpuscular Volume 89 fL (80-100); NRBC ABSOLUTE 0.00 K/mm3 (0.00-0.02); NRBC Auto 0.0 /100 WBC (0.0-0.2); RDW Coefficient Variation 14.6 % (11.7-14.2); RDW Standard Deviation 46.8 fL (35.1-46.3)
[2025-07-31 09:03] LABS: BASOPHILS ABSOLUTE AUTO 0.00 K/mm3 (0.00-0.23); BASOPHILS PERCENT AUTO 0 % (0-2); EOSINOPHILS ABSOLUTE AUTO 0.00 K/mm3 (0.00-0.68); EOSINOPHILS PERCENT AUTO 0 % (0-6); IMMATURE GRAN ABSOLUTE AUTO 0.00 K/mm3 (0.00-0.10); IMMATURE GRAN PERCENT AUTO 0 % (0-1); LYMPHOCYTES ABSOLUTE AUTO 0.35 K/mm3 (0.84-5.20); LYMPHOCYTES PERCENT AUTO 88 % (21-46); MONOCYTES ABSOLUTE AUTO 0.01 K/mm3 (0.16-1.47); MONOCYTES PERCENT AUTO 3 % (4-13); NEUTROPHILS ABSOLUTE AUTO 0.04 K/mm3 (1.96-9.15); NEUTROPHILS PERCENT AUTO 10 % (41-73)
[2025-07-31 09:05] LABS: Platelet Count 46 K/mm3 (150-400)
[2025-07-31 09:25] LABS: Alanine Aminotransfer (ALT/SGP 25.0 U/L (12-78); Albumin, Blood 3.1 g/dL (3.4-5.0); Albumin/Globulin Ratio 0.9 (0.8-1.8); Anion Gap 8.0 mmol/L (3-11); Aspartate Aminotrans (AST/SGOT 21.0 U/L (12-37); Bilirubin, Total 0.4 mg/dL (0.1-1.0); Blood Urea Nitrogen 26.0 mg/dL (8-24); CO2, Blood 27.0 mmol/L (21-32); Calcium, Blood 8.8 mg/dL (8.5-10.1); Chloride, Blood 108.0 mmol/L (98-108); Creatinine, Blood 0.84 mg/dL (0.40-1.00); Globulin, Blood 3.5 g/dL (2.2-4.0); Glucose, Blood 195.0 mg/dL (70-99); Lactate Dehydrogenase (Ld),Bld 199.0 U/L (100-240); Magnesium, Blood 2.1 mg/dL (1.6-2.4); Phosphorus, Blood 3.0 mg/dL (2.5-4.9); Potassium, Blood 4.2 mmol/L (3.5-5.5); Sodium, Blood 139.0 mmol/L (136-145); Total Protein, Blood 6.6 g/dL (6.4-8.2); Uric Acid, Blood 3.0 mg/dL (2.6-6.0)
== END 2025-07-31 08:27 | disposition home or self-care (01) ==
LOC: ATC 01:57
PROVIDERS: Internal Medicine Hematology & Oncology
DX: C93.00 Acute monoblastic/monocytic leukemia, not having achieved remission (principal); D64.81 Anemia due to antineoplastic chemotherapy; T45.1X5A Adverse effect of antineoplastic and immunosuppressive drugs, initial encounter; D69.6 Thrombocytopenia, unspecified; I25.10 Atherosclerotic heart disease of native coronary artery without angina pectoris; E78.5 Hyperlipidemia, unspecified; K21.9 Gastro-esophageal reflux disease without esophagitis; J43.9 Emphysema, unspecified; I12.9 Hypertensive chronic kidney disease with stage 1 through stage 4 chronic kidney disease, or unspecified chronic kidney disease; E11.22 Type 2 diabetes mellitus with diabetic chronic kidney disease; N18.9 Chronic kidney disease, unspecified; J96.91 Respiratory failure, unspecified with hypoxia; Z87.891 Personal history of nicotine dependence; Z79.2 Long term (current) use of antibiotics; Z79.4 Long term (current) use of insulin; Z79.82 Long term (current) use of aspirin; Z79.84 Long term (current) use of oral hypoglycemic drugs; Z79.899 Other long term (current) drug therapy
CPT/HCPCS: 36591; 80053; 83615; 83735; 84100; 84550; 85025; 99211

== ENCOUNTER 2025-08-05 00:21 | Day surgery (SDC) | payer MEDICARE ==
[2025-08-04 08:27] VITALS: BP 132/62
[2025-08-04 09:11] LABS: Hematocrit 23.3 % (33.0-51.0); Hemoglobin 8.2 g/dL (11.5-16.0); Mean Corpuscular HGB Conc 35.2 g/dL (31.5-36.5); Mean Corpuscular Volume 89 fL (80-100); NRBC ABSOLUTE 0.00 K/mm3 (0.00-0.02); NRBC Auto 0.0 /100 WBC (0.0-0.2); RDW Coefficient Variation 14.3 % (11.7-14.2); RDW Standard Deviation 45.5 fL (35.1-46.3)
[2025-08-04 09:18] LABS: Platelet Count 15 K/mm3 (150-400)
[2025-08-04 09:34] LABS: BASOPHILS ABSOLUTE MAN 0.00 K/mm3 (0.00-0.23); BASOPHILS PERCENT MAN 0 % (0-2); EOSINOPHILS ABSOLUTE MAN 0.00 K/mm3 (0.00-0.68); EOSINOPHILS PERCENT MAN 0 % (0-6); LYMPHOCYTES ABSOLUTE MAN 0.24 K/mm3 (0.84-5.20); LYMPHOCYTES PERCENT MAN 64 % (21-46); MONOCYTES ABSOLUTE MAN 0.01 K/mm3 (0.16-1.47); MONOCYTES PERCENT MAN 4 % (4-13); NEUTROPHILS ABSOLUTE MAN 0.12 K/mm3 (1.96-9.15); SEG NEUTROPHILS PERCENT MAN 32 % (41-73)
[2025-08-04 09:41] LABS: Alanine Aminotransfer (ALT/SGP 29.0 U/L (12-78); Albumin, Blood 3.0 g/dL (3.4-5.0); Albumin/Globulin Ratio 0.9 (0.8-1.8); Anion Gap 8.0 mmol/L (3-11); Aspartate Aminotrans (AST/SGOT 31.0 U/L (12-37); Bilirubin, Total 0.2 mg/dL (0.1-1.0); Blood Urea Nitrogen 24.0 mg/dL (8-24); CO2, Blood 26.0 mmol/L (21-32); Calcium, Blood 8.5 mg/dL (8.5-10.1); Chloride, Blood 110.0 mmol/L (98-108); Creatinine, Blood 0.94 mg/dL (0.40-1.00); Globulin, Blood 3.5 g/dL (2.2-4.0); Glucose, Blood 275.0 mg/dL (70-99); Lactate Dehydrogenase (Ld),Bld 172.0 U/L (100-240); Magnesium, Blood 1.9 mg/dL (1.6-2.4); Phosphorus, Blood 3.3 mg/dL (2.5-4.9); Potassium, Blood 4.0 mmol/L (3.5-5.5); Sodium, Blood 140.0 mmol/L (136-145); Total Protein, Blood 6.5 g/dL (6.4-8.2); Uric Acid, Blood 3.4 mg/dL (2.6-6.0)
[~2025-08-05 00:21] MED LIST changes: +OXYB5 PO
[2025-08-05] MEDS ORDERED: NS 250 ML IV SCH ×2 (07:00→07:25)
[2025-08-05 07:30] VITALS: BP 117/58
[2025-08-05 07:55] VITALS: BP 113/50
== END 2025-08-05 08:12 ==
LOC: ATC 00:21
PROVIDERS: Internal Medicine Hematology & Oncology
DX: C93.00 Acute monoblastic/monocytic leukemia, not having achieved remission (principal); D69.6 Thrombocytopenia, unspecified; E78.5 Hyperlipidemia, unspecified; J96.01 Acute respiratory failure with hypoxia; I25.2 Old myocardial infarction; I25.10 Atherosclerotic heart disease of native coronary artery without angina pectoris; I13.0 Hypertensive heart and chronic kidney disease with heart failure and stage 1 through stage 4 chronic kidney disease, or unspecified chronic kidney disease; I50.9 Heart failure, unspecified; N18.9 Chronic kidney disease, unspecified; E11.22 Type 2 diabetes mellitus with diabetic chronic kidney disease; D63.1 Anemia in chronic kidney disease; K21.9 Gastro-esophageal reflux disease without esophagitis; Z79.4 Long term (current) use of insulin; Z79.82 Long term (current) use of aspirin; Z79.84 Long term (current) use of oral hypoglycemic drugs; Z88.5 Allergy status to narcotic agent; Z87.891 Personal history of nicotine dependence; Z91.0110 Allergy to milk products, unspecified
CPT/HCPCS: 36430; 36591; 80053; 83615; 83735; 84100; 84550; 85025; 86900; 86901; P9035

== ENCOUNTER 2025-08-11 00:31 | Day surgery (SDC) | payer MEDICARE | END 2025-08-11 15:20 | disposition home or self-care (01) | LOC: ATC 00:31 | DX: C92.00 Acute myeloblastic leukemia, not having achieved remission (principal); D63.0 Anemia in neoplastic disease; C93.00 Acute monoblastic/monocytic leukemia, not having achieved remission; T45.1X5A Adverse effect of antineoplastic and immunosuppressive drugs, initial encounter; I10 Essential (primary) hypertension; E11.9 Type 2 diabetes mellitus without complications; I25.10 Atherosclerotic heart disease of native coronary artery without angina pectoris; D69.6 Thrombocytopenia, unspecified; Z87.891 Personal history of nicotine dependence; Z79.4 Long term (current) use of insulin; Z79.82 Long term (current) use of aspirin; Z79.84 Long term (current) use of oral hypoglycemic drugs; Z79.899 Other long term (current) drug therapy ==

== ENCOUNTER 2025-08-19 01:19 | Day surgery (SDC) | payer MEDICARE ==
[2025-08-18 08:40] VITALS: BP 111/57
[2025-08-18 09:20] LABS: BASOPHILS ABSOLUTE AUTO 0.01 K/mm3 (0.00-0.23); BASOPHILS PERCENT AUTO 1 % (0-2); EOSINOPHILS ABSOLUTE AUTO 0.01 K/mm3 (0.00-0.68); EOSINOPHILS PERCENT AUTO 1 % (0-6); Hematocrit 25.6 % (33.0-51.0); Hemoglobin 8.9 g/dL (11.5-16.0); IMMATURE GRAN ABSOLUTE AUTO 0.03 K/mm3 (0.00-0.10); IMMATURE GRAN PERCENT AUTO 2 % (0-1); LYMPHOCYTES ABSOLUTE AUTO 0.31 K/mm3 (0.84-5.20); LYMPHOCYTES PERCENT AUTO 16 % (21-46); MONOCYTES ABSOLUTE AUTO 0.41 K/mm3 (0.16-1.47); MONOCYTES PERCENT AUTO 22 % (4-13); Mean Corpuscular HGB Conc 34.8 g/dL (31.5-36.5); Mean Corpuscular Volume 88 fL (80-100); NEUTROPHILS ABSOLUTE AUTO 1.12 K/mm3 (1.96-9.15); NEUTROPHILS PERCENT AUTO 59 % (41-73); NRBC ABSOLUTE 0.02 K/mm3 (0.00-0.02); NRBC Auto 1.1 /100 WBC (0.0-0.2); RDW Coefficient Variation 13.6 % (11.7-14.2); RDW Standard Deviation 43.8 fL (35.1-46.3)
[2025-08-18 09:21] LABS: Alanine Aminotransfer (ALT/SGP 18.0 U/L (12-78); Albumin, Blood 3.1 g/dL (3.4-5.0); Albumin/Globulin Ratio 0.8 (0.8-1.8); Anion Gap 10.0 mmol/L (3-11); Aspartate Aminotrans (AST/SGOT 20.0 U/L (12-37); Bilirubin, Total 0.5 mg/dL (0.1-1.0); Blood Urea Nitrogen 22.0 mg/dL (8-24); CO2, Blood 25.0 mmol/L (21-32); Calcium, Blood 9.2 mg/dL (8.5-10.1); Chloride, Blood 109.0 mmol/L (98-108); Creatinine, Blood 0.85 mg/dL (0.40-1.00); Globulin, Blood 3.9 g/dL (2.2-4.0); Glucose, Blood 168.0 mg/dL (70-99); Lactate Dehydrogenase (Ld),Bld 197.0 U/L (100-240); Magnesium, Blood 2.2 mg/dL (1.6-2.4); Phosphorus, Blood 3.4 mg/dL (2.5-4.9); Potassium, Blood 3.6 mmol/L (3.5-5.5); Sodium, Blood 140.0 mmol/L (136-145); Total Protein, Blood 7.0 g/dL (6.4-8.2); Uric Acid, Blood 3.2 mg/dL (2.6-6.0)
[2025-08-18 09:47] LABS: Platelet Count 11 K/mm3 (150-400)
--- NOTE | 2025-08-18 10:49 | NUR ---
LAB RESULTS FAXED TO [facility] AT [facility]
[~2025-08-19 01:19] MED LIST changes: +ZARXIO300 MCG/01 SC
[2025-08-19] MEDS ORDERED: NS 250 ML IV SCH (06:00)
[2025-08-19] MEDS ORDERED: Percocet 5-3251 EACH PO (07:42)
[2025-08-19 07:43] VITALS: BP 114/54
[2025-08-19 08:10] VITALS: BP 105/42
== END 2025-08-19 08:34 | disposition home or self-care (01) ==
LOC: ATC 01:19
PROVIDERS: Internal Medicine Hematology & Oncology
DX: C93.00 Acute monoblastic/monocytic leukemia, not having achieved remission (principal); D64.81 Anemia due to antineoplastic chemotherapy; T45.1X5A Adverse effect of antineoplastic and immunosuppressive drugs, initial encounter; D69.6 Thrombocytopenia, unspecified; I10 Essential (primary) hypertension; E11.9 Type 2 diabetes mellitus without complications; I25.10 Atherosclerotic heart disease of native coronary artery without angina pectoris; Z87.891 Personal history of nicotine dependence; Z79.4 Long term (current) use of insulin; Z79.82 Long term (current) use of aspirin; Z79.84 Long term (current) use of oral hypoglycemic drugs; Z79.899 Other long term (current) drug therapy
CPT/HCPCS: 36430; 36591; 80053; 83615; 83735; 84100; 84550; 85025; 86900; 86901; P9035

== ENCOUNTER 2025-08-22 01:03 | Day surgery (SDC) | payer MEDICARE ==
[2025-08-22 08:35] VITALS: BP 132/55
[2025-08-22 09:52] LABS: Hematocrit 39.6 % (33.0-51.0); Hemoglobin 13.7 g/dL (11.5-16.0); Mean Corpuscular HGB Conc 34.6 g/dL (31.5-36.5); Mean Corpuscular Volume 89 fL (80-100); NRBC ABSOLUTE 0.02 K/mm3 (0.00-0.02); NRBC Auto 2.2 /100 WBC (0.0-0.2); RDW Coefficient Variation 14.0 % (11.7-14.2); RDW Standard Deviation 44.2 fL (35.1-46.3)
[2025-08-22 10:02] LABS: BASOPHILS ABSOLUTE AUTO 0.01 K/mm3 (0.00-0.23); BASOPHILS PERCENT AUTO 1 % (0-2); EOSINOPHILS ABSOLUTE AUTO 0.01 K/mm3 (0.00-0.68); EOSINOPHILS PERCENT AUTO 1 % (0-6); IMMATURE GRAN ABSOLUTE AUTO 0.01 K/mm3 (0.00-0.10); IMMATURE GRAN PERCENT AUTO 1 % (0-1); LYMPHOCYTES ABSOLUTE AUTO 0.18 K/mm3 (0.84-5.20); LYMPHOCYTES PERCENT AUTO 20 % (21-46); MONOCYTES ABSOLUTE AUTO 0.15 K/mm3 (0.16-1.47); MONOCYTES PERCENT AUTO 16 % (4-13); NEUTROPHILS ABSOLUTE AUTO 0.56 K/mm3 (1.96-9.15); NEUTROPHILS PERCENT AUTO 61 % (41-73); Platelet Count 29 K/mm3 (150-400)
[2025-08-22 10:11] LABS: Alanine Aminotransfer (ALT/SGP 16.0 U/L (12-78); Albumin, Blood 2.9 g/dL (3.4-5.0); Albumin/Globulin Ratio 0.8 (0.8-1.8); Anion Gap 9.0 mmol/L (3-11); Aspartate Aminotrans (AST/SGOT 16.0 U/L (12-37); Bilirubin, Total 0.3 mg/dL (0.1-1.0); Blood Urea Nitrogen 24.0 mg/dL (8-24); CO2, Blood 26.0 mmol/L (21-32); Calcium, Blood 8.9 mg/dL (8.5-10.1); Chloride, Blood 106.0 mmol/L (98-108); Creatinine, Blood 0.81 mg/dL (0.40-1.00); Globulin, Blood 3.8 g/dL (2.2-4.0); Glucose, Blood 149.0 mg/dL (70-99); Lactate Dehydrogenase (Ld),Bld 168.0 U/L (100-240); Magnesium, Blood 2.0 mg/dL (1.6-2.4); Phosphorus, Blood 3.0 mg/dL (2.5-4.9); Potassium, Blood 3.7 mmol/L (3.5-5.5); Sodium, Blood 137.0 mmol/L (136-145); Total Protein, Blood 6.7 g/dL (6.4-8.2); Uric Acid, Blood 3.8 mg/dL (2.6-6.0)
== END 2025-08-22 08:35 | disposition home or self-care (01) ==
LOC: ATC 01:03
PROVIDERS: Internal Medicine Hematology & Oncology
DX: C93.00 Acute monoblastic/monocytic leukemia, not having achieved remission (principal); D69.6 Thrombocytopenia, unspecified; E11.9 Type 2 diabetes mellitus without complications; I25.10 Atherosclerotic heart disease of native coronary artery without angina pectoris; I10 Essential (primary) hypertension; Z79.4 Long term (current) use of insulin; Z79.82 Long term (current) use of aspirin; Z79.84 Long term (current) use of oral hypoglycemic drugs; Z87.891 Personal history of nicotine dependence
CPT/HCPCS: 36591; 80053; 83615; 83735; 84100; 84550; 85025

== ENCOUNTER 2025-08-25 02:34 | Day surgery (SDC) | payer MEDICARE ==
[2025-08-25 11:09] VITALS: BP 141/70
--- NOTE | 2025-08-25 11:23 | NUR ---
PALE WILLSON SLOUGH PRESENT WHEN CHG DRESSING WAS REMOVED. PT HAD NO C/O OF PAIN OR DISCOMFORT. DRESSING WAS CLEAN, DRY AND INTACT. THE CHG APPEARED DAMP. THE SLOUGH CAME OFF WHEN GENTLY CLEANSED W/ CHLORAPREP SWAB. PT HAD NO C/O PAIN WHEN CLEANSED. THE NOW EXPOSED SKIN WAS RED AND ESCORIATED AND BLED A SMALL AMOUT BRIEFLY, BUT STOPPED AFTER DABBED WITH A STERILE 2X2. THE SKIN WAS ALOWED THE DRY COMPLETELY. THE NEW DRESSING INCLUDING A BIO PATCH A STERILE 2X2 GAUZE, TEGEDERM DRESSING AND STAT LOCK WAS PLACED. THE PATCH OF WILLSON SLOUGH WAS THE SIZE OF A QUARTER AND WAS DIRECTRLY UNDER THE CHG GEL. THIS RN NOTIFIED DEBORAH WHITE, AT DR MARRERO OFFICE, OF THE PATIENTS SKIN CONDITION. WILL AWAIT A RESPONSE FROM THAT OFFICE FOR FURTHER ORDERS.
[2025-08-25 11:48] LABS: BASOPHILS ABSOLUTE AUTO 0.00 K/mm3 (0.00-0.23); BASOPHILS PERCENT AUTO 0 % (0-2); EOSINOPHILS ABSOLUTE AUTO 0.02 K/mm3 (0.00-0.68); EOSINOPHILS PERCENT AUTO 1 % (0-6); Hematocrit 23.4 % (33.0-51.0); Hemoglobin 8.0 g/dL (11.5-16.0); IMMATURE GRAN ABSOLUTE AUTO 0.01 K/mm3 (0.00-0.10); IMMATURE GRAN PERCENT AUTO 1 % (0-1); LYMPHOCYTES ABSOLUTE AUTO 0.47 K/mm3 (0.84-5.20); LYMPHOCYTES PERCENT AUTO 25 % (21-46); MONOCYTES ABSOLUTE AUTO 0.34 K/mm3 (0.16-1.47); MONOCYTES PERCENT AUTO 18 % (4-13); Mean Corpuscular HGB Conc 34.2 g/dL (31.5-36.5); Mean Corpuscular Volume 91 fL (80-100); NEUTROPHILS ABSOLUTE AUTO 1.03 K/mm3 (1.96-9.15); NEUTROPHILS PERCENT AUTO 55 % (41-73); NRBC ABSOLUTE 0.05 K/mm3 (0.00-0.02); NRBC Auto 2.7 /100 WBC (0.0-0.2); RDW Coefficient Variation 13.6 % (11.7-14.2); RDW Standard Deviation 43.4 fL (35.1-46.3)
[2025-08-25 11:56] LABS: Platelet Count 37 K/mm3 (150-400)
[2025-08-25 12:28] LABS: Alanine Aminotransfer (ALT/SGP 20.0 U/L (12-78); Albumin, Blood 3.3 g/dL (3.4-5.0); Albumin/Globulin Ratio 0.9 (0.8-1.8); Anion Gap 9.0 mmol/L (3-11); Aspartate Aminotrans (AST/SGOT 24.0 U/L (12-37); Bilirubin, Total 0.4 mg/dL (0.1-1.0); Blood Urea Nitrogen 17.0 mg/dL (8-24); CO2, Blood 26.0 mmol/L (21-32); Calcium, Blood 9.0 mg/dL (8.5-10.1); Chloride, Blood 110.0 mmol/L (98-108); Creatinine, Blood 0.86 mg/dL (0.40-1.00); Globulin, Blood 3.7 g/dL (2.2-4.0); Glucose, Blood 153.0 mg/dL (70-99); Lactate Dehydrogenase (Ld),Bld 208.0 U/L (100-240); Magnesium, Blood 2.1 mg/dL (1.6-2.4); Phosphorus, Blood 2.9 mg/dL (2.5-4.9); Potassium, Blood 3.7 mmol/L (3.5-5.5); Sodium, Blood 141.0 mmol/L (136-145); Total Protein, Blood 7.0 g/dL (6.4-8.2); Uric Acid, Blood 3.1 mg/dL (2.6-6.0)
== END 2025-08-25 10:50 | disposition home or self-care (01) ==
LOC: ATC 02:34
PROVIDERS: Internal Medicine Hematology & Oncology
DX: C93.00 Acute monoblastic/monocytic leukemia, not having achieved remission (principal); D64.81 Anemia due to antineoplastic chemotherapy; T45.1X5A Adverse effect of antineoplastic and immunosuppressive drugs, initial encounter; D69.6 Thrombocytopenia, unspecified; I10 Essential (primary) hypertension; E11.9 Type 2 diabetes mellitus without complications; I25.10 Atherosclerotic heart disease of native coronary artery without angina pectoris; Z87.891 Personal history of nicotine dependence; Z79.4 Long term (current) use of insulin; Z79.82 Long term (current) use of aspirin; Z79.84 Long term (current) use of oral hypoglycemic drugs; Z79.899 Other long term (current) drug therapy
CPT/HCPCS: 36591; 80053; 83615; 83735; 84100; 84550; 85025

== ENCOUNTER 2025-08-29 12:34 | Day surgery (SDC) | payer MEDICARE ==
[2025-08-28 10:55] VITALS: BP 135/49
[2025-08-28 13:00] LABS: BASOPHILS ABSOLUTE AUTO 0.01 K/mm3 (0.00-0.23); BASOPHILS PERCENT AUTO 1 % (0-2); EOSINOPHILS ABSOLUTE AUTO 0.02 K/mm3 (0.00-0.68); EOSINOPHILS PERCENT AUTO 1 % (0-6); Hematocrit 22.4 % (33.0-51.0); Hemoglobin 7.6 g/dL (11.5-16.0); IMMATURE GRAN ABSOLUTE AUTO 0.02 K/mm3 (0.00-0.10); IMMATURE GRAN PERCENT AUTO 1 % (0-1); LYMPHOCYTES ABSOLUTE AUTO 0.50 K/mm3 (0.84-5.20); LYMPHOCYTES PERCENT AUTO 28 % (21-46); MONOCYTES ABSOLUTE AUTO 0.32 K/mm3 (0.16-1.47); MONOCYTES PERCENT AUTO 18 % (4-13); Mean Corpuscular HGB Conc 33.9 g/dL (31.5-36.5); Mean Corpuscular Volume 92 fL (80-100); NEUTROPHILS ABSOLUTE AUTO 0.95 K/mm3 (1.96-9.15); NEUTROPHILS PERCENT AUTO 52 % (41-73); NRBC ABSOLUTE 0.05 K/mm3 (0.00-0.02); NRBC Auto 2.7 /100 WBC (0.0-0.2); RDW Coefficient Variation 13.5 % (11.7-14.2); RDW Standard Deviation 42.8 fL (35.1-46.3)
[2025-08-28 13:18] LABS: Platelet Count 40 K/mm3 (150-400)
[2025-08-28 13:29] LABS: Alanine Aminotransfer (ALT/SGP 22.0 U/L (12-78); Albumin, Blood 3.2 g/dL (3.4-5.0); Albumin/Globulin Ratio 0.9 (0.8-1.8); Anion Gap 9.0 mmol/L (3-11); Aspartate Aminotrans (AST/SGOT 19.0 U/L (12-37); Bilirubin, Total 0.5 mg/dL (0.1-1.0); Blood Urea Nitrogen 19.0 mg/dL (8-24); CO2, Blood 26.0 mmol/L (21-32); Calcium, Blood 8.9 mg/dL (8.5-10.1); Chloride, Blood 110.0 mmol/L (98-108); Creatinine, Blood 0.85 mg/dL (0.40-1.00); Globulin, Blood 3.6 g/dL (2.2-4.0); Glucose, Blood 129.0 mg/dL (70-99); Lactate Dehydrogenase (Ld),Bld 201.0 U/L (100-240); Magnesium, Blood 2.1 mg/dL (1.6-2.4); Phosphorus, Blood 3.1 mg/dL (2.5-4.9); Potassium, Blood 3.7 mmol/L (3.5-5.5); Sodium, Blood 141.0 mmol/L (136-145); Total Protein, Blood 6.8 g/dL (6.4-8.2); Uric Acid, Blood 2.9 mg/dL (2.6-6.0)
[2025-08-29] MEDS ORDERED: NS 250 ML IV SCH (12:40)
[2025-08-29 13:42] VITALS: BP 102/57
[2025-08-29 14:00] VITALS: BP 115/45
== END 2025-08-29 14:25 | disposition home or self-care (01) ==
LOC: ATC 12:34
PROVIDERS: Internal Medicine Hematology & Oncology
DX: C93.00 Acute monoblastic/monocytic leukemia, not having achieved remission (principal); D64.81 Anemia due to antineoplastic chemotherapy; T45.1X5A Adverse effect of antineoplastic and immunosuppressive drugs, initial encounter; D69.6 Thrombocytopenia, unspecified; I10 Essential (primary) hypertension; E11.9 Type 2 diabetes mellitus without complications; I25.10 Atherosclerotic heart disease of native coronary artery without angina pectoris; Z87.891 Personal history of nicotine dependence; Z79.4 Long term (current) use of insulin; Z79.82 Long term (current) use of aspirin; Z79.84 Long term (current) use of oral hypoglycemic drugs; Z79.899 Other long term (current) drug therapy
CPT/HCPCS: 36430; 36591; 80053; 83615; 83735; 84100; 84550; 85025; 86900; 86901; 99211; J7050; P9035

== ENCOUNTER 2025-09-01 04:37 | Day surgery (SDC) | payer MEDICARE ==
[2025-09-01 08:15] VITALS: BP 103/76
[2025-09-01] MEDS ORDERED: Percocet 10-321 EACH PO (08:17)
[2025-09-01] MEDS ORDERED: OXYCODONE-ACET1 EAC2 PO (08:18)
[2025-09-01 08:38] LABS: BASOPHILS ABSOLUTE AUTO 0.01 K/mm3 (0.00-0.23); BASOPHILS PERCENT AUTO 0 % (0-2); EOSINOPHILS ABSOLUTE AUTO 0.02 K/mm3 (0.00-0.68); EOSINOPHILS PERCENT AUTO 1 % (0-6); Hematocrit 21.0 % (33.0-51.0); Hemoglobin 7.2 g/dL (11.5-16.0); IMMATURE GRAN ABSOLUTE AUTO 0.01 K/mm3 (0.00-0.10); IMMATURE GRAN PERCENT AUTO 0 % (0-1); LYMPHOCYTES ABSOLUTE AUTO 0.47 K/mm3 (0.84-5.20); LYMPHOCYTES PERCENT AUTO 13 % (21-46); MONOCYTES ABSOLUTE AUTO 0.61 K/mm3 (0.16-1.47); MONOCYTES PERCENT AUTO 16 % (4-13); Mean Corpuscular HGB Conc 34.3 g/dL (31.5-36.5); Mean Corpuscular Volume 93 fL (80-100); NEUTROPHILS ABSOLUTE AUTO 2.61 K/mm3 (1.96-9.15); NEUTROPHILS PERCENT AUTO 70 % (41-73); NRBC ABSOLUTE 0.05 K/mm3 (0.00-0.02); NRBC Auto 1.3 /100 WBC (0.0-0.2); Platelet Count 82 K/mm3 (150-400); RDW Coefficient Variation 16.1 % (11.7-14.2); RDW Standard Deviation 43.2 fL (35.1-46.3)
[2025-09-01 09:03] LABS: Alanine Aminotransfer (ALT/SGP 19.0 U/L (12-78); Albumin, Blood 3.1 g/dL (3.4-5.0); Albumin/Globulin Ratio 0.9 (0.8-1.8); Anion Gap 8.0 mmol/L (3-11); Aspartate Aminotrans (AST/SGOT 18.0 U/L (12-37); Bilirubin, Total 0.6 mg/dL (0.1-1.0); Blood Urea Nitrogen 19.0 mg/dL (8-24); CO2, Blood 26.0 mmol/L (21-32); Calcium, Blood 8.7 mg/dL (8.5-10.1); Chloride, Blood 109.0 mmol/L (98-108); Creatinine, Blood 0.88 mg/dL (0.40-1.00); Globulin, Blood 3.6 g/dL (2.2-4.0); Glucose, Blood 141.0 mg/dL (70-99); Lactate Dehydrogenase (Ld),Bld 211.0 U/L (100-240); Magnesium, Blood 2.2 mg/dL (1.6-2.4); Phosphorus, Blood 3.3 mg/dL (2.5-4.9); Potassium, Blood 3.7 mmol/L (3.5-5.5); Sodium, Blood 139.0 mmol/L (136-145); Total Protein, Blood 6.7 g/dL (6.4-8.2); Uric Acid, Blood 3.5 mg/dL (2.6-6.0)
--- NOTE | 2025-09-01 09:38 | NUR ---
Weekly labs faxed to [facility].
== END 2025-09-01 08:35 | disposition home or self-care (01) ==
LOC: ATC 04:37
PROVIDERS: Internal Medicine Hematology & Oncology
DX: C93.00 Acute monoblastic/monocytic leukemia, not having achieved remission (principal); D64.81 Anemia due to antineoplastic chemotherapy; T45.1X5A Adverse effect of antineoplastic and immunosuppressive drugs, initial encounter; D69.6 Thrombocytopenia, unspecified; I10 Essential (primary) hypertension; E11.9 Type 2 diabetes mellitus without complications; I25.10 Atherosclerotic heart disease of native coronary artery without angina pectoris; Z87.891 Personal history of nicotine dependence; Z79.4 Long term (current) use of insulin; Z79.82 Long term (current) use of aspirin; Z79.84 Long term (current) use of oral hypoglycemic drugs; Z79.899 Other long term (current) drug therapy
CPT/HCPCS: 36591; 80053; 83615; 83735; 84100; 84550; 85025

== ENCOUNTER → 2025-09-02 | Outpatient (CLI) | payer MEDICARE ==
[~2025-09-02] MED LIST changes: +OXYCODONE-ACET1 EAC2 PO; +Percocet 10-321 EACH PO
[2025-09-02 11:18] LABS: BASOPHILS ABSOLUTE AUTO 0.01 K/mm3 (0.00-0.23); BASOPHILS PERCENT AUTO 0 % (0-2); EOSINOPHILS ABSOLUTE AUTO 0.02 K/mm3 (0.00-0.68); EOSINOPHILS PERCENT AUTO 1 % (0-6); Hematocrit 21.1 % (33.0-51.0); Hemoglobin 7.3 g/dL (11.5-16.0); IMMATURE GRAN ABSOLUTE AUTO 0.03 K/mm3 (0.00-0.10); IMMATURE GRAN PERCENT AUTO 1 % (0-1); LYMPHOCYTES ABSOLUTE AUTO 0.44 K/mm3 (0.84-5.20); LYMPHOCYTES PERCENT AUTO 12 % (21-46); MONOCYTES ABSOLUTE AUTO 0.54 K/mm3 (0.16-1.47); MONOCYTES PERCENT AUTO 14 % (4-13); Mean Corpuscular HGB Conc 34.6 g/dL (31.5-36.5); Mean Corpuscular Volume 93 fL (80-100); NEUTROPHILS ABSOLUTE AUTO 2.72 K/mm3 (1.96-9.15); NEUTROPHILS PERCENT AUTO 72 % (41-73); NRBC ABSOLUTE 0.03 K/mm3 (0.00-0.02); NRBC Auto 0.8 /100 WBC (0.0-0.2); RDW Coefficient Variation 16.9 % (11.7-14.2); RDW Standard Deviation 43.2 fL (35.1-46.3)
[2025-09-02 11:32] LABS: Alanine Aminotransfer (ALT/SGP 19.0 U/L (12-78); Albumin, Blood 3.2 g/dL (3.4-5.0); Albumin/Globulin Ratio 0.8 (0.8-1.8); Anion Gap 15.0 mmol/L (3-11); Aspartate Aminotrans (AST/SGOT 21.0 U/L (12-37); Bilirubin, Total 0.6 mg/dL (0.1-1.0); Blood Urea Nitrogen 18.0 mg/dL (8-24); CO2, Blood 26.0 mmol/L (21-32); Calcium, Blood 9.2 mg/dL (8.5-10.1); Chloride, Blood 106.0 mmol/L (98-108); Creatinine, Blood 0.96 mg/dL (0.40-1.00); Globulin, Blood 3.8 g/dL (2.2-4.0); Glucose, Blood 135.0 mg/dL (70-99); Potassium, Blood 3.8 mmol/L (3.5-5.5); Sodium, Blood 143.0 mmol/L (136-145); Total Protein, Blood 7.0 g/dL (6.4-8.2)
[2025-09-02 12:53] LABS: Platelet Count 73 K/mm3 (150-400)
== END | disposition home or self-care (01) ==
LOC: LAB SHORT 11:13 → LAB 11:13
PROVIDERS: Physician Assistant
DX: M54.9 Dorsalgia, unspecified (principal)
CPT/HCPCS: 80053; 83690; 85025

== ENCOUNTER 2025-09-04 03:28 | Day surgery (SDC) | payer MEDICARE ==
[2025-09-04 08:39] VITALS: BP 124/62
[2025-09-04 10:13] LABS: BASOPHILS ABSOLUTE AUTO 0.01 K/mm3 (0.00-0.23); BASOPHILS PERCENT AUTO 0 % (0-2); EOSINOPHILS ABSOLUTE AUTO 0.02 K/mm3 (0.00-0.68); EOSINOPHILS PERCENT AUTO 1 % (0-6); Hematocrit 20.9 % (33.0-51.0); Hemoglobin 7.0 g/dL (11.5-16.0); IMMATURE GRAN ABSOLUTE AUTO 0.04 K/mm3 (0.00-0.10); IMMATURE GRAN PERCENT AUTO 1 % (0-1); LYMPHOCYTES ABSOLUTE AUTO 0.48 K/mm3 (0.84-5.20); LYMPHOCYTES PERCENT AUTO 13 % (21-46); MONOCYTES ABSOLUTE AUTO 0.49 K/mm3 (0.16-1.47); MONOCYTES PERCENT AUTO 13 % (4-13); Mean Corpuscular HGB Conc 33.5 g/dL (31.5-36.5); Mean Corpuscular Volume 95 fL (80-100); NEUTROPHILS ABSOLUTE AUTO 2.68 K/mm3 (1.96-9.15); NEUTROPHILS PERCENT AUTO 72 % (41-73); NRBC ABSOLUTE 0.05 K/mm3 (0.00-0.02); NRBC Auto 1.3 /100 WBC (0.0-0.2); Platelet Count 83 K/mm3 (150-400); RDW Coefficient Variation 18.6 % (11.7-14.2); RDW Standard Deviation 44.9 fL (35.1-46.3)
[2025-09-04 10:35] LABS: Alanine Aminotransfer (ALT/SGP 15.0 U/L (12-78); Albumin, Blood 3.2 g/dL (3.4-5.0); Albumin/Globulin Ratio 0.9 (0.8-1.8); Anion Gap 10.0 mmol/L (3-11); Aspartate Aminotrans (AST/SGOT 13.0 U/L (12-37); Bilirubin, Total 0.4 mg/dL (0.1-1.0); Blood Urea Nitrogen 22.0 mg/dL (8-24); CO2, Blood 23.0 mmol/L (21-32); Calcium, Blood 8.9 mg/dL (8.5-10.1); Chloride, Blood 111.0 mmol/L (98-108); Creatinine, Blood 0.89 mg/dL (0.40-1.00); Globulin, Blood 3.7 g/dL (2.2-4.0); Glucose, Blood 179.0 mg/dL (70-99); Lactate Dehydrogenase (Ld),Bld 229.0 U/L (100-240); Magnesium, Blood 2.2 mg/dL (1.6-2.4); Phosphorus, Blood 3.4 mg/dL (2.5-4.9); Potassium, Blood 3.8 mmol/L (3.5-5.5); Sodium, Blood 140.0 mmol/L (136-145); Total Protein, Blood 6.9 g/dL (6.4-8.2); Uric Acid, Blood 3.1 mg/dL (2.6-6.0)
== END 2025-09-04 08:49 | disposition home or self-care (01) ==
LOC: ATC 03:28
PROVIDERS: Internal Medicine Hematology & Oncology
DX: C93.00 Acute monoblastic/monocytic leukemia, not having achieved remission (principal); D64.81 Anemia due to antineoplastic chemotherapy; T45.1X5A Adverse effect of antineoplastic and immunosuppressive drugs, initial encounter; D69.6 Thrombocytopenia, unspecified; I10 Essential (primary) hypertension; E11.9 Type 2 diabetes mellitus without complications; I25.10 Atherosclerotic heart disease of native coronary artery without angina pectoris; Z87.891 Personal history of nicotine dependence; Z79.4 Long term (current) use of insulin; Z79.82 Long term (current) use of aspirin; Z79.84 Long term (current) use of oral hypoglycemic drugs; Z79.899 Other long term (current) drug therapy
CPT/HCPCS: 36591; 80053; 83615; 83735; 84100; 84550; 85025

== ENCOUNTER 2025-09-08 00:33 | Day surgery (SDC) | payer MEDICARE ==
[2025-09-08 08:30] VITALS: BP 124/72
[2025-09-08 08:43] LABS: BASOPHILS ABSOLUTE AUTO 0.02 K/mm3 (0.00-0.23); BASOPHILS PERCENT AUTO 1 % (0-2); EOSINOPHILS ABSOLUTE AUTO 0.03 K/mm3 (0.00-0.68); EOSINOPHILS PERCENT AUTO 1 % (0-6); Hematocrit 25.4 % (33.0-51.0); Hemoglobin 8.6 g/dL (11.5-16.0); IMMATURE GRAN ABSOLUTE AUTO 0.04 K/mm3 (0.00-0.10); IMMATURE GRAN PERCENT AUTO 1 % (0-1); LYMPHOCYTES ABSOLUTE AUTO 0.43 K/mm3 (0.84-5.20); LYMPHOCYTES PERCENT AUTO 12 % (21-46); MONOCYTES ABSOLUTE AUTO 0.44 K/mm3 (0.16-1.47); MONOCYTES PERCENT AUTO 13 % (4-13); Mean Corpuscular HGB Conc 33.9 g/dL (31.5-36.5); Mean Corpuscular Volume 96 fL (80-100); NEUTROPHILS ABSOLUTE AUTO 2.54 K/mm3 (1.96-9.15); NEUTROPHILS PERCENT AUTO 73 % (41-73); NRBC ABSOLUTE 0.04 K/mm3 (0.00-0.02); NRBC Auto 1.1 /100 WBC (0.0-0.2); Platelet Count 84 K/mm3 (150-400); RDW Coefficient Variation 18.6 % (11.7-14.2); RDW Standard Deviation 46.8 fL (35.1-46.3)
[2025-09-08 09:12] LABS: Alanine Aminotransfer (ALT/SGP 16.0 U/L (12-78); Albumin, Blood 3.2 g/dL (3.4-5.0); Albumin/Globulin Ratio 0.9 (0.8-1.8); Anion Gap 9.0 mmol/L (3-11); Aspartate Aminotrans (AST/SGOT 15.0 U/L (12-37); Bilirubin, Total 0.5 mg/dL (0.1-1.0); Blood Urea Nitrogen 18.0 mg/dL (8-24); CO2, Blood 26.0 mmol/L (21-32); Calcium, Blood 8.8 mg/dL (8.5-10.1); Chloride, Blood 108.0 mmol/L (98-108); Creatinine, Blood 0.84 mg/dL (0.40-1.00); Globulin, Blood 3.5 g/dL (2.2-4.0); Glucose, Blood 167.0 mg/dL (70-99); Lactate Dehydrogenase (Ld),Bld 203.0 U/L (100-240); Magnesium, Blood 1.9 mg/dL (1.6-2.4); Phosphorus, Blood 3.3 mg/dL (2.5-4.9); Potassium, Blood 3.6 mmol/L (3.5-5.5); Sodium, Blood 139.0 mmol/L (136-145); Total Protein, Blood 6.7 g/dL (6.4-8.2); Uric Acid, Blood 3.0 mg/dL (2.6-6.0)
--- NOTE | 2025-09-08 10:57 | NUR ---
Lab results from today faxed to [facility].
== END 2025-09-08 08:40 | disposition home or self-care (01) ==
LOC: ATC 00:33
PROVIDERS: Internal Medicine Hematology & Oncology
DX: C93.00 Acute monoblastic/monocytic leukemia, not having achieved remission (principal); I10 Essential (primary) hypertension; E11.9 Type 2 diabetes mellitus without complications; I25.10 Atherosclerotic heart disease of native coronary artery without angina pectoris; D64.81 Anemia due to antineoplastic chemotherapy; T45.1X5A Adverse effect of antineoplastic and immunosuppressive drugs, initial encounter; D69.6 Thrombocytopenia, unspecified; Z87.891 Personal history of nicotine dependence; Z79.4 Long term (current) use of insulin; Z79.82 Long term (current) use of aspirin; Z79.84 Long term (current) use of oral hypoglycemic drugs; Z79.899 Other long term (current) drug therapy
CPT/HCPCS: 36591; 80053; 83615; 83735; 84100; 84550; 85025

== ENCOUNTER 2025-09-15 00:19 | Day surgery (SDC) | payer MEDICARE ==
[2025-09-15 08:19] VITALS: BP 136/62
[2025-09-15 09:42] LABS: BASOPHILS ABSOLUTE AUTO 0.01 K/mm3 (0.00-0.23); BASOPHILS PERCENT AUTO 0 % (0-2); EOSINOPHILS ABSOLUTE AUTO 0.03 K/mm3 (0.00-0.68); EOSINOPHILS PERCENT AUTO 1 % (0-6); Hematocrit 24.1 % (33.0-51.0); Hemoglobin 8.1 g/dL (11.5-16.0); IMMATURE GRAN ABSOLUTE AUTO 0.03 K/mm3 (0.00-0.10); IMMATURE GRAN PERCENT AUTO 1 % (0-1); LYMPHOCYTES ABSOLUTE AUTO 0.53 K/mm3 (0.84-5.20); LYMPHOCYTES PERCENT AUTO 10 % (21-46); MONOCYTES ABSOLUTE AUTO 0.35 K/mm3 (0.16-1.47); MONOCYTES PERCENT AUTO 7 % (4-13); Mean Corpuscular HGB Conc 33.6 g/dL (31.5-36.5); Mean Corpuscular Volume 98 fL (80-100); NEUTROPHILS ABSOLUTE AUTO 4.20 K/mm3 (1.96-9.15); NEUTROPHILS PERCENT AUTO 82 % (41-73); NRBC ABSOLUTE 0.02 K/mm3 (0.00-0.02); NRBC Auto 0.4 /100 WBC (0.0-0.2); Platelet Count 89 K/mm3 (150-400); RDW Coefficient Variation 20.6 % (11.7-14.2); RDW Standard Deviation 53.1 fL (35.1-46.3)
[2025-09-15 10:15] LABS: Alanine Aminotransfer (ALT/SGP 15.0 U/L (12-78); Albumin, Blood 3.2 g/dL (3.4-5.0); Albumin/Globulin Ratio 0.9 (0.8-1.8); Anion Gap 10.0 mmol/L (3-11); Aspartate Aminotrans (AST/SGOT 11.0 U/L (12-37); Bilirubin, Total 0.5 mg/dL (0.1-1.0); Blood Urea Nitrogen 22.0 mg/dL (8-24); CO2, Blood 24.0 mmol/L (21-32); Calcium, Blood 9.3 mg/dL (8.5-10.1); Chloride, Blood 109.0 mmol/L (98-108); Creatinine, Blood 0.84 mg/dL (0.40-1.00); Globulin, Blood 3.5 g/dL (2.2-4.0); Glucose, Blood 118.0 mg/dL (70-99); Magnesium, Blood 2.0 mg/dL (1.6-2.4); Phosphorus, Blood 3.3 mg/dL (2.5-4.9); Potassium, Blood 3.9 mmol/L (3.5-5.5); Sodium, Blood 139.0 mmol/L (136-145); Total Protein, Blood 6.7 g/dL (6.4-8.2); Uric Acid, Blood 2.4 mg/dL (2.6-6.0)
[2025-09-17 14:35] LABS: LACTATE DEHYDROGENASE - 1 34 % (14-27); LACTATE DEHYDROGENASE - 2 39 % (29-42); LACTATE DEHYDROGENASE - 3 16 % (18-30); LACTATE DEHYDROGENASE - 4 6 % (8-15); LACTATE DEHYDROGENASE - 5 5 % (6-23); LACTATE DEHYDROGENASE,TOTAL 214 U/L (105-230)
== END 2025-09-15 08:48 | disposition home or self-care (01) ==
LOC: ATC 00:19
PROVIDERS: Internal Medicine Hematology & Oncology
DX: C93.00 Acute monoblastic/monocytic leukemia, not having achieved remission (principal); D64.81 Anemia due to antineoplastic chemotherapy; T45.1X5A Adverse effect of antineoplastic and immunosuppressive drugs, initial encounter; D69.6 Thrombocytopenia, unspecified; I10 Essential (primary) hypertension; E11.9 Type 2 diabetes mellitus without complications; I25.10 Atherosclerotic heart disease of native coronary artery without angina pectoris; Z87.891 Personal history of nicotine dependence; Z79.2 Long term (current) use of antibiotics; Z79.4 Long term (current) use of insulin; Z79.82 Long term (current) use of aspirin; Z79.84 Long term (current) use of oral hypoglycemic drugs; Z79.899 Other long term (current) drug therapy
CPT/HCPCS: 80053; 83615; 83625; 83735; 84100; 84550; 85025

== ENCOUNTER 2025-09-23 01:42 | Day surgery (SDC) | payer MEDICARE ==
[2025-09-22 08:19] VITALS: BP 120/64
[2025-09-22 08:59] LABS: BASOPHILS ABSOLUTE AUTO 0.01 K/mm3 (0.00-0.23); BASOPHILS PERCENT AUTO 1 % (0-2); EOSINOPHILS ABSOLUTE AUTO 0.00 K/mm3 (0.00-0.68); EOSINOPHILS PERCENT AUTO 0 % (0-6); Hematocrit 22.6 % (33.0-51.0); Hemoglobin 7.7 g/dL (11.5-16.0); IMMATURE GRAN ABSOLUTE AUTO 0.01 K/mm3 (0.00-0.10); IMMATURE GRAN PERCENT AUTO 1 % (0-1); LYMPHOCYTES ABSOLUTE AUTO 0.52 K/mm3 (0.84-5.20); LYMPHOCYTES PERCENT AUTO 26 % (21-46); MONOCYTES ABSOLUTE AUTO 0.23 K/mm3 (0.16-1.47); MONOCYTES PERCENT AUTO 12 % (4-13); Mean Corpuscular HGB Conc 34.1 g/dL (31.5-36.5); Mean Corpuscular Volume 98 fL (80-100); NEUTROPHILS ABSOLUTE AUTO 1.23 K/mm3 (1.96-9.15); NEUTROPHILS PERCENT AUTO 62 % (41-73); NRBC ABSOLUTE 0.03 K/mm3 (0.00-0.02); NRBC Auto 1.5 /100 WBC (0.0-0.2); RDW Coefficient Variation 21.6 % (11.7-14.2); RDW Standard Deviation 69.1 fL (35.1-46.3)
[2025-09-22 09:06] LABS: Platelet Count 46 K/mm3 (150-400)
[2025-09-22 09:12] LABS: Magnesium, Blood 1.9 mg/dL (1.6-2.4)
[2025-09-22 09:25] LABS: Alanine Aminotransfer (ALT/SGP 27.0 U/L (12-78); Albumin, Blood 3.2 g/dL (3.4-5.0); Albumin/Globulin Ratio 0.9 (0.8-1.8); Anion Gap 8.0 mmol/L (3-11); Aspartate Aminotrans (AST/SGOT 25.0 U/L (12-37); Bilirubin, Total 0.5 mg/dL (0.1-1.0); Blood Urea Nitrogen 20.0 mg/dL (8-24); CO2, Blood 26.0 mmol/L (21-32); Calcium, Blood 9.6 mg/dL (8.5-10.1); Chloride, Blood 111.0 mmol/L (98-108); Creatinine, Blood 0.84 mg/dL (0.40-1.00); Globulin, Blood 3.5 g/dL (2.2-4.0); Glucose, Blood 179.0 mg/dL (70-99); Lactate Dehydrogenase (Ld),Bld 201.0 U/L (100-240); Phosphorus, Blood 2.3 mg/dL (2.5-4.9); Potassium, Blood 3.5 mmol/L (3.5-5.5); Sodium, Blood 141.0 mmol/L (136-145); Total Protein, Blood 6.7 g/dL (6.4-8.2); Uric Acid, Blood 2.7 mg/dL (2.6-6.0)
[2025-09-23] MEDS ORDERED: NS 250 ML IV SCH (06:00)
[2025-09-23 07:25] VITALS: BP 119/59
[2025-09-23 07:49] VITALS: BP 109/49
[2025-09-23 09:02] VITALS: BP 110/47
== END 2025-09-23 09:08 | disposition home or self-care (01) ==
LOC: ATC 01:42
PROVIDERS: Internal Medicine Hematology & Oncology
DX: C92.00 Acute myeloblastic leukemia, not having achieved remission (principal); D69.6 Thrombocytopenia, unspecified; I10 Essential (primary) hypertension; E11.9 Type 2 diabetes mellitus without complications; I25.10 Atherosclerotic heart disease of native coronary artery without angina pectoris; Z87.891 Personal history of nicotine dependence; Z79.4 Long term (current) use of insulin; Z79.82 Long term (current) use of aspirin; Z79.84 Long term (current) use of oral hypoglycemic drugs; Z79.899 Other long term (current) drug therapy
CPT/HCPCS: 36430; 80053; 83615; 83735; 84100; 84550; 85025; 86850; 86900; 86901; 86923; J7050; P9016